=== PATIENT | female | born 1990 | race Caucasian/White ===

== ENCOUNTER 2016-09-09 07:47 | Emergency (ER) | payer OTHER | END 2016-09-09 09:09 | disposition home or self-care (01) | DX: J18.9 Pneumonia, unspecified organism (principal) ==

== ENCOUNTER 2016-10-28 12:24 | Emergency (ER) | payer OTHER ==
[2016-10-28] MEDS ORDERED: ONDANSETRON 4 MG/2 ML VIAL IVP STA ×2 (12:54→15:10)
[2016-10-28] MEDS ORDERED: HYDROmorphone 1 MG/ML SYRINGE IVP STA ×2 (12:54→14:17)
[2016-10-28] MEDS ORDERED: HYDROmorphone 1 MG/ML SYRINGE ONE ×2 (13:03→14:19)
[2016-10-28] MEDS ORDERED: ONDANSETRON 4 MG/2 ML VIAL ONE ×2 (13:03→15:10)
[2016-10-28] MEDS ORDERED: SODIUM CHLORIDE 0.9% 1,000 ML IV ONE (13:24)
[2016-10-28] MEDS ORDERED: IOPAMIDOL-300 100 ML VIAL IVP ONE (15:30)
== END 2016-10-28 16:28 | disposition home or self-care (01) ==
DX: K52.9 Noninfective gastroenteritis and colitis, unspecified (principal)
CPT/HCPCS: 36415; 74177; 80053; 81001; 81025; 83690; 85025; 96361; 96374; 96375; 96376; 99283; 99284; J1170; Q9967

== ENCOUNTER 2016-11-11 21:24 | Emergency (ER) | payer OTHER ==
[2016-11-11] MEDS ORDERED: HYDROcod/ACETAM 5/325 MG TABLET ONE (22:16)
[2016-11-11] MEDS ORDERED: KETOROLAC 60 MG/2 ML VIAL ONE (22:17)
[2016-11-12] MEDS ORDERED: DEXAMETHASONE 10 MG/ML VIAL PO STA (01:01)
[2016-11-12] MEDS ORDERED: HYDROcod/ACET 5/325 Prepack 6 PO ONE ×2 (01:01→01:04)
[2016-11-12] MEDS ORDERED: CEPHALEXIN 250 MG CAPSULE PO STA (01:01)
[2016-11-12] MEDS ORDERED: metroNIDAZOLE 250 MG TABLET PO STA (01:01)
[2016-11-12] MEDS ORDERED: CEPHALEXIN 250 MG CAPSULE PO ONE (01:04)
[2016-11-12] MEDS ORDERED: metroNIDAZOLE 250 MG TABLET PO ONE (01:04)
[2016-11-12] MEDS ORDERED: CHERRY SYRUP 10 ML UDC PO ONE (01:04)
[2016-11-12] MEDS ORDERED: DEXAMETHASONE 10 MG/ML VIAL ONE (01:05)
== END 2016-11-12 01:16 | disposition home or self-care (01) ==
DX: K52.9 Noninfective gastroenteritis and colitis, unspecified (principal); R10.12 Left upper quadrant pain
CPT/HCPCS: 36415; 74176; 80053; 81001; 81025; 83690; 85025; 99283; 99284; A9270

== ENCOUNTER 2016-12-12 17:56 | Emergency (ER) | payer OTHER ==
[2016-12-12] MEDS ORDERED: SODIUM CHLORIDE 0.9% 1,000 ML IV ONE ×2 (18:41→18:53)
[2016-12-12] MEDS ORDERED: MAG HYDROX/AL HYDROX/SIMETH 30 ML UDC PO STA (18:41)
[2016-12-12] MEDS ORDERED: METOCLOPRAMIDE 10 MG/2 ML VIAL IVP STA (18:41)
[2016-12-12] MEDS ORDERED: diphenhydrAMINE INJ 50 MG/ML VIAL IVP STA (18:41)
[2016-12-12] MEDS ORDERED: LIDOCAINE VISCOUS 2% 15 ML UDC MM STA (18:41)
[2016-12-12] MEDS ORDERED: diphenhydrAMINE INJ 50 MG/ML VIAL ONE (18:52)
[2016-12-12] MEDS ORDERED: MAG HYDROX/AL HYDROX/SIMETH 30 ML UDC ONE (18:52)
[2016-12-12] MEDS ORDERED: LIDOCAINE VISCOUS 2% 15 ML UDC MM ONE (18:52)
[2016-12-12] MEDS ORDERED: METOCLOPRAMIDE 10 MG/2 ML VIAL IVP ONE (18:53)
== END 2016-12-12 21:32 | disposition home or self-care (01) ==
DX: K20.9 Esophagitis, unspecified (principal); G43.109 Migraine with aura, not intractable, without status migrainosus; R03.0 Elevated blood-pressure reading, without diagnosis of hypertension
CPT/HCPCS: 71020; 80053; 81001; 81025; 83690; 85025; 85379; 93005; 93010; 96374; 96375; 99283; 99284; A9270

== ENCOUNTER 2016-12-16 13:03 | Day surgery (SDC) | payer OTHER ==
[2016-12-16] MEDS ORDERED: LACTATED RINGERS 1,000 ML IV ONE (13:42)
[2016-12-16] MEDS ORDERED: MIDAZOLAM 2 MG/2 ML VIAL IVP ONE (15:20)
[2016-12-16] MEDS ORDERED: fentaNYL 100 MCG/2 ML VIAL IVP ONE (15:20)
== END 2016-12-16 13:04 | disposition home or self-care (01) ==
PROC: 0DB68ZX Excision of Stomach, Via Natural or Artificial Opening Endoscopic, Diagnostic (ICD-10-PCS; principal; 2016-12-16 14:00)
PROC: 0DJD8ZZ Inspection of Lower Intestinal Tract, Via Natural or Artificial Opening Endoscopic (ICD-10-PCS; 2016-12-16 14:00)
DX: K21.9 Gastro-esophageal reflux disease without esophagitis (principal); R93.3 Abnormal findings on diagnostic imaging of other parts of digestive tract; K20.9 Esophagitis, unspecified; Z88.0 Allergy status to penicillin; Z88.2 Allergy status to sulfonamides
CPT/HCPCS: 43239; 45378; J7120

== ENCOUNTER 2017-10-25 08:36 | Emergency (ER) | payer OTHER ==
[2017-10-25] MEDS ORDERED: guaiFENesin/DEXTROMETHORPHAN 10 ML UDC PO STA ×2 (08:56→09:22)
[2017-10-25] MEDS ORDERED: BENZONATATE 100 MG CAPSULE PO STA ×2 (08:56→09:22)
--- NOTE | 2017-10-25 08:59 | ED Physician Documentation ---
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: Endometrial ablation HEENT: Tonsil/Adenoidectomy - Present Medications Home Medications: Ambulatory Orders Medication Instructions Recorded Confirmed "Migraine Medicine" 1 tab PO DAILY PRN 09/09/16 12/12/16 Sucralfate [Carafate] 1 gm PO ACHS #300 ml 06/23/17 Benzonatate [Tessalon] 100 mg PO TID PRN #20 capsule 10/25/17 guaiFENesin/DEXTROMETHORPHAN 10 ml PO Q6H PRN #120 ml 10/25/17 [Robitussin Dm] - Allergies Allergies/Adverse Reactions: Allergies Allergy/AdvReac Type Severity Reaction Status Date / Time naproxen [From Naprosyn] Allergy Hives Verified 06/23/17 05:47 Penicillins Allergy Hives Verified 06/23/17 05:47 Sulfa (Sulfonamide Allergy Hives Verified 06/23/17 05:47 Antibiotics) - Social History Does the pt smoke?: No Smoking Status: Never smoker Does the pt drink ETOH?: Yes Does the pt have substance abuse?: No - Immunizations Immunizations are current?: No - POLST Patient has POLST: No PD ED PE NORMAL - Vitals Vital signs reviewed: Yes - Neck Neck: Supple, no meningeal sign - Cardiac Cardiac: RRR - Respiratory Respiratory: No respiratory distress, Clear bilaterally - Abdomen Abdomen: Soft, Non tender - Derm Derm: Normal color - Extremities Extremities: No edema, No calf tenderness / cord - Neuro Neuro: Alert and oriented X 3 Results - Vitals Vitals: Vital Signs - 24 hr 10/25/17 10/25/17 10/25/17 08:45 11:21 11:39 Temperature 36.6 C 37.3 C Heart Rate 86 73 70 Respiratory 16 16 16 Rate Blood Pressure 123/67 105/67 117/76 O2 Saturation 99 98 100 Oxygen O2 Source Room air - Labs Labs: Laboratory Tests 10/25/17 10/25/17 10/25/17 09:23 09:23 09:23 WBC 7.7 RBC 4.43 Hgb 13.3 Hct 37.9 MCV 85.6 MCH 29.9 MCHC 35.0 RDW 13.3 Plt Count 288 MPV 7.5 L Neut # 4.6 Lymph # 2.2 Walker # 0.6 Eos # 0.2 Baso # 0.1 Absolute Nucleated RBC 0.00 Nucleated RBC % 0.0 D-Dimer < 200.0 L Sodium 138 Potassium 3.6 Chloride 105 Carbon Dioxide 24 Anion Gap 9.0 BUN 10 Creatinine 0.7 Estimated GFR (MDRD) 99 Glucose 93 Calcium 8.8 Serum HCG, Qual 10/25/17 09:30 WBC RBC Hgb Hct MCV MCH MCHC RDW Plt Count MPV Neut # Lymph # Walker # Eos # Baso # Absolute Nucleated RBC Nucleated RBC % D-Dimer Sodium Potassium Chloride Carbon Dioxide Anion Gap BUN Creatinine Estimated GFR (MDRD) Glucose Calcium Serum HCG, Qual NEGATIVE - Rads (name of study) CXR Radiology: See rad report (no acute) CTPA Radiology: See rad report (no PE, no infection not vis on CXR, approx 4 small nodules rec 12 m fup) Departure - Departure Disposition: 01 Home, Self Care Clinical Impression: Hemoptysis Condition: Good Instructions: ED Hemoptysis Follow-Up: Rafa Damian DO [Primary Care Provider] - Prescriptions: Benzonatate [Tessalon] 100 mg PO TID PRN #20 capsule PRN Reason: to ease cough guaiFENesin/DEXTROMETHORPHAN [Robitussin Dm] 10 ml PO Q6H PRN #120 ml PRN Reason: Cough Comments: Your blood work, xray and CT scan were all reassuring The only abnormality was 4 small incidentally noted nodules in your lungs which would not cause you to cough blood - these nodules do not look concerning but it would be prudent to have your PMD order a repat chest xray or CT scan in 1 year It does not seem you have a blood clot in your lung, pneumonia, TB, or cancer. I am not sure what caused the bleeding though If the sympotms persist, the next step would be to see a waste water operator to get a scope of your lungs called bronchoscopy - this is not done at [facility] and you would need a referral from your PMD. But for now given, the reassuring work up in the ER I think it is safe for you to go home with cough medications Follow up with your PMD if the symptoms persist If your start bleeding heavily (more than 2-3 tablespoons of solid blood) then come back to the ER Forms: Activity restrictions
[2017-10-25 09:31] LABS: BASOPHILS # (AUTO) 0.1 10^3/uL (0.0-0.1); EOSINOPHILS # (AUTO) 0.2 10^3/uL (0.0-0.7); HGB - HEMOGLOBIN 13.3 g/dL (12.0-16.0); LYMPHOCYTES # (AUTO) 2.2 10^3/uL (1.5-3.5); LYMPHOCYTES % (AUTO) 29.2 %; MEAN CORPUSCULAR HEMOGLOBIN 29.9 pg (27.0-31.0); MEAN CORPUSCULAR VOLUME 85.6 fL (81.0-99.0); MEAN PLATELET VOLUME 7.5 fL (7.9-10.8); MONOCYTES # (AUTO) 0.6 10^3/uL (0.0-1.0); MONOCYTES % (AUTO) 7.3 %; NEUTROPHILS # (AUTO) 4.6 10^3/uL (1.5-6.6); NEUTROPHILS % (AUTO) 60.5 %; PLT - PLATELET COUNT 288 10^3/uL (130-450); RED BLOOD COUNT 4.43 10^6/uL (4.20-5.40); RED CELL DISTRIBUTION WIDTH 13.3 % (12.0-15.0); WHITE BLOOD COUNT 7.7 x10^3/uL (4.8-10.8)
[2017-10-25 09:47] LABS: CALCIUM 8.8 mg/dL (8.5-10.3); CREATININE 0.7 mg/dL (0.4-1.0)
--- NOTE | 2017-10-25 10:23 | XRAY Report ---
EXAM: CHEST RADIOGRAPHY EXAM DATE: 10/25/2017 09:31 AM. CLINICAL HISTORY: Hemoptysis. COMPARISON: 12/12/2016. TECHNIQUE: 2 views. FINDINGS: Lungs/Pleura: Improved bibasilar pulmonary aeration. Stable equivocal mild bibasilar bronchial wall t hickening. No consolidation, vascular congestion, pleural effusion, or pneumothorax. Mediastinum: Heart and mediastinal contours are unremarkable. Bones: Unremarkable. Other: Right upper quadrant clips. IMPRESSION: 1. No consolidation or heart failure. 2. Improved lung expansion. Similar equivocal mild basilar bronchial wall thickening. [facility] Referring Provider Line: [phone] SITE ID: [id number]
--- NOTE | 2017-10-25 10:23 | XRAY Preliminary Report ---
Exam: XR CHEST 2 VIEW X-RAY IMPRESSION: 1. No consolidation or heart failure. 2. Improved lung expansion. Similar equivocal mild basilar bronchial wall thickening. [facility] SITE ID: [id number]
[2017-10-25 10:34] LABS: HCG,QUALITATIVE BLOOD NEGATIVE
[2017-10-25] MEDS ORDERED: IOPAMIDOL-300 100 ML VIAL ONE (10:55)
[2017-10-25 11:40] VITALS: BP 117/76
--- NOTE | 2017-10-25 12:05 | CT Preliminary Report ---
Exam: CT CHEST ANGIO (PE) IMPRESSION: 1. No pulmonary emboli. 2. Multiple small nodules right lung largest 4 mm. If no risk factors for lung cancer no follow-up ne eded. If risk factors for lung cancer optional follow-up 12 months [facility] SITE ID: [id number]
--- NOTE | 2017-10-25 12:05 | CT Report ---
EXAM: CT ANGIOGRAM CHEST EXAM DATE: 10/25/2017 11:09 AM. CLINICAL HISTORY: Hemoptysis. COMPARISON: None. TECHNIQUE: Routine helical imaging was performed through the chest in the pulmonary arterial phase. I V Contrast: Amt/type. Reconstructions: Coronal 3-D MIP reconstructions.Sagittal and coronal. In accordance with CT protocol optimization, one or more of the following dose reduction techniques w ere utilized for this exam: automated exposure control, adjustment of mA and/or KV based on patient s ize, or use of iterative reconstructive technique. FINDINGS: Pulmonary Arteries: Diagnostic quality: Adequate through the segmental arteries. No evidence for acute or chronic pulmona ry emboli. RV/LV is within normal limits. There is no interventricular septal bowing. There is no reflux of cont rast material in the IVC. Lungs/Pleura: 4 mm nodule right lower lobe posterior segment series 5 image 97. 2 mm possible calcifi ed nodule right lower lobe image 100. 2 mm nodule right upper lobe series 5 image 32. 2 mm nodule rig ht upper lobe series 5 image 62 medially No effusions or pneumothorax. Mediastinum: Normal. No cardiac enlargement or adenopathy. Thoracic Aorta: Unremarkable. Upper Abdomen: Unremarkable. Other: None. IMPRESSION: 1. No pulmonary emboli. 2. Multiple small nodules right lung largest 4 mm. If no risk factors for lung cancer no follow-up ne eded. If risk factors for lung cancer optional follow-up 12 months [facility] Referring Provider Line: [phone] SITE ID: [id number]
== END 2017-10-25 12:41 | disposition home or self-care (01) ==
LOC: ED 08:36
DX: R04.2 Hemoptysis (principal); R91.8 Other nonspecific abnormal finding of lung field
CPT/HCPCS: 36415; 71046; 71275; 80048; 84703; 85025; 85379; 99283; A9270; Q9967

== ENCOUNTER 2017-11-08 17:18 | Emergency (ER) | payer OTHER ==
[2017-11-08 18:02] LABS: BASOPHILS # (AUTO) 0.1 10^3/uL (0.0-0.1); BASOPHILS % (AUTO) 0.9 %; EOSINOPHILS # (AUTO) 0.2 10^3/uL (0.0-0.7); EOSINOPHILS % (AUTO) 2.6 %; HGB - HEMOGLOBIN 13.2 g/dL (12.0-16.0); LYMPHOCYTES # (AUTO) 3.1 10^3/uL (1.5-3.5); LYMPHOCYTES % (AUTO) 32.5 %; MEAN CORPUSCULAR HEMOGLOBIN 29.3 pg (27.0-31.0); MEAN CORPUSCULAR HGB CONC 34.1 g/dL (32.0-36.0); MEAN CORPUSCULAR VOLUME 85.8 fL (81.0-99.0); MEAN PLATELET VOLUME 7.4 fL (7.9-10.8); MONOCYTES # (AUTO) 0.8 10^3/uL (0.0-1.0); MONOCYTES % (AUTO) 8.7 %; NEUTROPHILS # (AUTO) 5.2 10^3/uL (1.5-6.6); NEUTROPHILS % (AUTO) 55.3 %; PLT - PLATELET COUNT 376 10^3/uL (130-450); RED BLOOD COUNT 4.51 10^6/uL (4.20-5.40); RED CELL DISTRIBUTION WIDTH 13.2 % (12.0-15.0); WHITE BLOOD COUNT 9.4 x10^3/uL (4.8-10.8)
[2017-11-08 18:16] LABS: ALBUMIN 4.6 g/dL (3.2-5.5); ALBUMIN/GLOBULIN RATIO 1.5 (1.0-2.2); BILIRUBIN,TOTAL 0.6 mg/dL (0.2-1.0); CREATININE 0.6 mg/dL (0.4-1.0); TOTAL PROTEIN 7.6 g/dL (6.7-8.2)
[2017-11-08 18:22] LABS: BILIRUBIN,URINE NEGATIVE (NEGATIVE); GLUCOSE, URINE (UA) NEGATIVE (NEGATIVE); KETONES,URINE (UA) NEGATIVE (NEGATIVE); LEUKOCYTE ESTERASE, URINE NEGATIVE (NEGATIVE); NITRITE,URINE NEGATIVE (NEGATIVE); OCCULT BLOOD,URINE NEGATIVE (NEGATIVE); PROTEIN,URINE NEGATIVE (NEGATIVE); UROBILINOGEN,URINE 0.2 (NORMAL) E.U./dL (NORMAL)
[2017-11-08 18:28] LABS: CLARITY,URINE CLEAR (CLEAR); HCG UR QUAL NEGATIVE
--- NOTE | 2017-11-08 19:52 | XRAY Preliminary Report ---
Exam: XR CHEST 2 VIEW X-RAY IMPRESSION: No acute cardiopulmonary disease seen. [facility] SITE ID: [id number]
--- NOTE | 2017-11-08 19:53 | XRAY Report ---
EXAM: CHEST RADIOGRAPHY EXAM DATE: 11/08/2017 07:26 PM. CLINICAL HISTORY: Cough, dyspnea. COMPARISON: Chest 10/25/2017. TECHNIQUE: 2 views. FINDINGS: Lungs/Pleura: No focal opacities evident. No pleural effusion. No pneumothorax. Normal volumes. Mediastinum: Heart and mediastinal contours are unremarkable. IMPRESSION: No acute cardiopulmonary disease seen. [facility] Referring Provider Line: [phone] SITE ID: [id number]
[2017-11-08] MEDS ORDERED: KETOROLAC 60 MG/2 ML VIAL IM STA (19:58)
[2017-11-08] MEDS ORDERED: LIDOCAINE PATCH 5% TOP STA (19:58)
--- NOTE | 2017-11-08 20:05 | ED Physician Documentation ---
PD HPI ABD PAIN - Stated complaint Stated Complaint: SOA/UPPER RT SIDE PX - Chief complaint Chief Complaint: Abd Pain - History obtained from History obtained from: Patient - History of Present Illness Timing - onset: Yesterday Timing - details: Gradual onset, Still present Quality: Aching, Sharp Location: RUQ Worsened by: Moving, Position, Palpation Associated symptoms: Diarrhea. No: Fever, Nausea, Vomiting, Constipation Similar symptoms before: Has not had sx before Recently seen: Emergency Dept - Additional information Additional information: Patient is a 27 year old female presenting to the emergency department for abdominal pain. Patient states that for the last couple of days she has had right upper quadrant pain. Patient states that it is worse with movement or palpation and when she lies down flat. Patient states that she was coughing last week a lot and was diagnosed with pulmonary nodules. patient has had her gallbladder removed. patient states that she had one loose stool but denies nausea, vomiting or fevers. Review of Systems Constitutional: denies: Fever, Chills Eyes: reports: Reviewed and negative Ears: reports: Reviewed and negative Nose: reports: Reviewed and negative Throat: reports: Reviewed and negative Cardiac: denies: Chest pain / pressure, Palpitations Respiratory: denies: Dyspnea, Cough, Wheezing GI: reports: Abdominal Pain, Constipation. 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 HEENT: Tonsil/Adenoidectomy - Present Medications Home Medications: Ambulatory Orders Medication Instructions Recorded Confirmed Lidocaine Patch 5% [Lidoderm Patch] 1 each TOP DAILY #14 patch 11/08/17 - Allergies Allergies/Adverse Reactions: Allergies Allergy/AdvReac Type Severity Reaction Status Date / Time naproxen [From Naprosyn] Allergy Hives Verified 11/08/17 17:43 Penicillins Allergy Hives Verified 11/08/17 17:43 Sulfa (Sulfonamide Allergy Hives Verified 11/08/17 17:43 Antibiotics) - Social History Does the pt smoke?: No Smoking Status: Never smoker Does the pt drink ETOH?: Yes Does the pt have substance abuse?: No - Immunizations Immunizations are current?: No - POLST Patient has POLST: No PD ED PE NORMAL - Vitals Vital signs reviewed: Yes - General General: Alert and oriented X 3, No acute distress - HEENT HEENT: Atraumatic, Moist mucous membranes - Neck Neck: Supple, no meningeal sign - Cardiac Cardiac: RRR, No murmur - Respiratory Respiratory: No respiratory distress - Abdomen Abdomen: Soft, Non tender, Non distended - Back Back: No CVA TTP - Derm Derm: Normal color, No rash - Extremities Extremities: No deformity - Neuro Neuro: Alert and oriented X 3, No motor deficit, No sensory deficit, Normal speech Eye Opening: Spontaneous Motor: Obeys Commands Verbal: Oriented GCS Score: 15 - Psych Psych: Normal mood PD ED PE EXPANDED - General General: Alert, No acute distress - Abdomen Abdomen: Tender to palpation (point tenderness right upper quadrant but over the ribs, less the abdomen) Results - Vitals Vitals: Vital Signs - 24 hr 11/08/17 17:38 Temperature 36.8 C Heart Rate 86 Respiratory 18 Rate Blood Pressure 133/92 H O2 Saturation 100 Oxygen O2 Source Room air - Labs Labs: Laboratory Tests 11/08/17 11/08/17 11/08/17 17:57 17:57 17:58 WBC 9.4 RBC 4.51 Hgb 13.2 Hct 38.7 MCV 85.8 MCH 29.3 MCHC 34.1 RDW 13.2 Plt Count 376 MPV 7.4 L Neut # 5.2 Lymph # 3.1 [place] # 0.8 Eos # 0.2 Baso # 0.1 Absolute Nucleated RBC 0.00 Nucleated RBC % 0.0 Sodium 136 Potassium 3.7 Chloride 105 Carbon Dioxide 24 Anion Gap 7.0 BUN 7 Creatinine 0.6 Estimated GFR (MDRD) 118 Glucose 110 H Calcium 9.0 Total Bilirubin 0.6 AST 24 ALT 26 Alkaline Phosphatase 88 Total Protein 7.6 Albumin 4.6 Globulin 3.0 Albumin/Globulin Ratio 1.5 Lipase 17 L Urine Color YELLOW Urine Clarity CLEAR Urine pH 6.0 Ur Specific [place] 1.020 Urine Protein NEGATIVE Urine Glucose (UA) NEGATIVE Urine Ketones NEGATIVE Urine Occult Blood NEGATIVE Urine Nitrite NEGATIVE Urine Bilirubin NEGATIVE Urine Urobilinogen 0.2 (NORMAL) Ur Leukocyte Esterase NEGATIVE Ur Microscopic Review NOT INDICATED Urine Culture Comments NOT INDICATED Urine HCG, Qual NEGATIVE - Rads (name of study) chest x-ray Radiology: Final report received (normal) PD MEDICAL DECISION MAKING - ED course Complexity details: reviewed old records, reviewed results, re-evaluated patient , d/w patient ED course: Patient was seen and examined at bedside. patient was well appearing and in no distress. Patient's diagnostics were within normal limits. Patient's physical revealed the pain likely to be a muscle strain. Patient was able to tolerate PO without any difficulty. patient required no further work up and was stable for discharge with outpatient follow up. Departure - Departure Disposition: Home, Self Care Clinical Impression: Strain of abdominal muscle Condition: Good Instructions: ED Strain Abdominal Muscle Follow-Up: Rafa Damian DO [Primary Care Provider] - As Needed Prescriptions: Lidocaine Patch 5% [Lidoderm Patch] 1 each TOP DAILY #14 patch Comments: Your diagnostics today were within normal limits. there is no sign of infection , or intra-abdominal abnormality. Your symptoms are likely secondary to a muscle strain. You can take motrin or tylenol as needed fro pain as well as the lidoderm patch. You should follow up with your doctor if your symptoms persist. You may return to the emergency department at any time for new, worsening or uncontrollable symptoms. Forms: Activity restrictions
[2017-11-08 20:22] VITALS: BP 146/92
== END 2017-11-08 20:22 | disposition home or self-care (01) ==
LOC: ED 17:18
DX: S39.011A Strain of muscle, fascia and tendon of abdomen, initial encounter (principal); X58.XXXA Exposure to other specified factors, initial encounter
CPT/HCPCS: 36415; 71046; 80053; 81003; 81025; 83690; 85025; 96372; 99283; A9270; 81001; 87086

== ENCOUNTER 2018-05-30 08:10 | Emergency (ER) | payer OTHER ==
[2018-05-30] MEDS ORDERED: ALBUTEROL NEB 2.5 MG/3 ML INH STA (08:35)
[2018-05-30] MEDS ORDERED: BENZONATATE 100 MG CAPSULE PO STA (08:35)
--- NOTE | 2018-05-30 08:38 | ED Physician Documentation ---
PD HPI URI - Stated complaint Stated Complaint: COUGH - Chief complaint Chief Complaint: Resp - History obtained from History obtained from: Patient - History of Present Illness Timing - onset: How many days ago (2) Timing duration: Days (2) Timing details: Gradual onset Pain level max: 0 Pain level now: 0 Associated symptoms: Nasal congestion, Rhinorrhea, Dry cough, Dyspnea (wheezing). No: Fever, Chills Contributing factors: Sick contact (states has used inhalers in the past) Improves by: Rest Worsened by: Activity, Breathing Recently seen: Not recently seen Review of Systems Constitutional: denies: Fever, Chills Throat: denies: Sore throat Cardiac: denies: Chest pain / pressure Respiratory: reports: Dyspnea, Cough, Wheezing GI: denies: Nausea, Vomiting, Diarrhea : denies: Now EGA Skin: denies: Rash Musculoskeletal: denies: Neck pain, Back pain Neurologic: denies: Headache PD PAST MEDICAL HISTORY - Past Medical History Past Medical History: Yes Cardiovascular: None Respiratory: None Neuro: None Endocrine/Autoimmune: None GI: None 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 : None HEENT: None Psych: Anxiety, Panic attacks, Post traumatic stress disorder Musculoskeletal: None Derm: None - Past Surgical History Past Surgical History: Yes 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 HEENT: Tonsil/Adenoidectomy - Present Medications Home Medications: Ambulatory Orders Medication Instructions Recorded Confirmed Lidocaine Patch 5% [Lidoderm Patch] 1 each TOP DAILY #14 patch 11/08/17 Albuterol Sulf [Ventolin Hfa 1 - 2 puffs INH Q4HR PRN #1 inhaler 05/30/18 Inhaler] Benzonatate [Tessalon Perle] 100 - 200 mg PO TID PRN #30 capsule 05/30/18 - Allergies Allergies/Adverse Reactions: Allergies Allergy/AdvReac Type Severity Reaction Status Date / Time naproxen [From Naprosyn] Allergy Hives Verified 05/30/18 08:16 Penicillins Allergy Hives Verified 05/30/18 08:16 Sulfa (Sulfonamide Allergy Hives Verified 05/30/18 08:16 Antibiotics) - Social History Does the pt smoke?: No Smoking Status: Never smoker Does the pt drink ETOH?: Yes ETOH Use: Wine Does the pt have substance abuse?: No - Immunizations Immunizations are current?: Yes - POLST Patient has POLST: No PD ED PE NORMAL - Vitals Vital signs reviewed: Yes - General General: Alert and oriented X 3, No acute distress - HEENT HEENT: Ears normal, Moist mucous membranes, Pharynx benign - Neck Neck: Supple, no meningeal sign - Cardiac Cardiac: RRR - Respiratory Respiratory: No respiratory distress, Other (Mild diminished breath sounds bilaterally) - Abdomen Abdomen: Soft, Non tender, Non distended - Derm Derm: Warm and dry, No rash - Extremities Extremities: No edema, No calf tenderness / cord - Neuro Neuro: Alert and oriented X 3 Results - Vitals Vitals: Vital Signs - 24 hr 05/30/18 08:13 Temperature 36.2 C L Heart Rate 87 Respiratory 18 Rate Blood Pressure 131/75 H O2 Saturation 98 Oxygen O2 Source Room air - Rads (name of study) Chest x-ray Radiology: Prelim report reviewed, EMP read contemporaneously, See rad report (No acute abnormality) PD MEDICAL DECISION MAKING - ED course Complexity details: reviewed results, re-evaluated patient, considered differential, d/w patient ED course: Patient is a 27-year-old female who presents to the emergency department with what appears to be a viral upper respiratory infection. No acute findings on chest x-ray. Feels better after nebulizer treatment. Will prescribe antitussives and inhalers for home. We will have her follow-up with her doctor for further evaluation and care. Patient counseled regarding signs and symptoms for which I believe and urgent re-evaluation would be necessary. Patient with good understanding of and agreement to plan and is comfortable going home at this time This document was made in part using voice recognition software. While efforts are made to proofread this document, sound alike and grammatical errors may occur. Departure - Departure Disposition: 01 Home, Self Care Clinical Impression: Viral URI with cough Condition: Good Instructions: ED URI Viral W Wheezing Follow-Up: Rafa Damian DO [Primary Care Provider] - As Needed Prescriptions: Albuterol Sulf [Ventolin Hfa Inhaler] 1 - 2 puffs INH Q4HR PRN #1 inhaler PRN Reason: Shortness Of Air/Wheezing Benzonatate [Tessalon Perle] 100 - 200 mg PO TID PRN #30 capsule PRN Reason: Cough Comments: Return if you worsen. This cough may last for several weeks. There is no evidence of pneumonia on your chest x-ray today.
--- NOTE | 2018-05-30 08:39 | XRAY Report ---
Reason: COUGH Procedure Date: 05/30/2018 Accession Number: [id number] / [id number] Procedure: XR - Chest 2 View X-Ray CPT Code: 36923 FULL RESULT: EXAM: CHEST RADIOGRAPHY EXAM DATE: 05/30/2018 08:28 AM. CLINICAL HISTORY: COUGH. Cough for 2 days with difficulty breathing now. COMPARISON: CHEST 2 VIEW 11/08/2017 7:15 PM. TECHNIQUE: 2 views. FINDINGS: Lungs/Pleura: No focal opacities evident. No pleural effusion. No pneumothorax. Normal volumes. Mediastinum: Heart and mediastinal contours are unremarkable. Other: None. IMPRESSION: Normal 2-view chest radiography. [facility]
[2018-05-30 09:16] VITALS: BP 128/74
== END 2018-05-30 09:15 | disposition home or self-care (01) ==
LOC: ED 08:10
DX: J06.9 Acute upper respiratory infection, unspecified (principal)
CPT/HCPCS: 71046; 94640; 99283; A9270

== ENCOUNTER 2018-06-02 08:11 | Emergency (ER) | payer OTHER ==
[2018-06-02 08:16] VITALS: BP 141/75
[2018-06-02] MEDS ORDERED: AZITHROMYCIN 250 MG TABLET PO STA (08:26)
[2018-06-02] MEDS ORDERED: predniSONE 20 MG TABLET PO STA (08:26)
--- NOTE | 2018-06-02 08:29 | ED Physician Documentation ---
History of Present Illness - Stated complaint Stated Complaint: COUGH/UNABLE TO SLEEP - Chief complaint Chief Complaint: Resp - Additonal information Additional information: hx from pt 27 y/o f denies preg no travel no sick contacts cough getting worse X 2 weeks productive post tussive vomiting no NVD no leg swelling seen 3 days ago neg CXR rx albuterol and tessalon worse Review of Systems Constitutional: denies: Fever Respiratory: reports: Cough GI: denies: Vomiting, Diarrhea : denies: Now EGA Musculoskeletal: denies: Extremity swelling Immunocompromised: denies: Immunocompromised PD PAST MEDICAL HISTORY - Past Medical History Cardiovascular: None Respiratory: None Neuro: None Endocrine/Autoimmune: None GI: None 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 HEENT: None Psych: Anxiety, Panic attacks, Post traumatic stress disorder Musculoskeletal: None Derm: None - Past Surgical History Past Surgical History: Yes 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 HEENT: Tonsil/Adenoidectomy - Present Medications Home Medications: Ambulatory Orders Medication Instructions Recorded Confirmed Albuterol Sulf [Ventolin Hfa 1 - 2 puffs INH Q4HR PRN #1 inhaler 05/30/18 Inhaler] Benzonatate [Tessalon Perle] 100 - 200 mg PO TID PRN #30 capsule 05/30/18 Azithromycin [Zithromax] 500 mg PO DAILY #4 tablet 06/02/18 guaiFENesin/CODEINE [Robitussin AC] 5 - 10 ml PO Q6H PRN #120 udc 06/02/18 predniSONE [Deltasone] 60 mg PO DAILY 4 Days #12 tablet 06/02/18 - Allergies Allergies/Adverse Reactions: Allergies Allergy/AdvReac Type Severity Reaction Status Date / Time naproxen [From Naprosyn] Allergy Hives Verified 06/02/18 08:16 Penicillins Allergy Hives Verified 06/02/18 08:16 Sulfa (Sulfonamide Allergy Hives Verified 06/02/18 08:16 Antibiotics) - Social History Does the pt smoke?: No Smoking Status: Never smoker Does the pt drink ETOH?: Yes Does the pt have substance abuse?: No - Immunizations Immunizations are current?: Yes - POLST Patient has POLST: No PD ED PE NORMAL - Vitals Vital signs reviewed: Yes - Cardiac Cardiac: RRR - Respiratory Respiratory: Other (focal ronchi LLL) - Abdomen Abdomen: Soft, Non tender - Extremities Extremities: No edema, No calf tenderness / cord Results - Vitals Vitals: Vital Signs - 24 hr 06/02/18 08:14 Temperature 36.0 C L Heart Rate 78 Respiratory 16 Rate Blood Pressure 141/75 H O2 Saturation 99 Oxygen O2 Source Room air PD MEDICAL DECISION MAKING - ED course ED course: no fever myalgia or GI sx so doubt influenza - sick for 2 weeks so tamiflu would not be indicated anyway Departure - Departure Disposition: 01 Home, Self Care Clinical Impression: Pneumonia Qualifiers: Pneumonia type: due to unspecified organism Laterality: left Lung location: lower lobe of lung Qualified Code(s): J18.1 - Lobar pneumonia, unspecified organism Condition: Good Instructions: ED Pneumonia Adult Follow-Up: Rafa Damian DO [Primary Care Provider] - Prescriptions: Azithromycin [Zithromax] 500 mg PO DAILY #4 tablet guaiFENesin/CODEINE [Robitussin AC] 5 - 10 ml PO Q6H PRN #120 udc PRN Reason: Cough predniSONE [Deltasone] 60 mg PO DAILY 4 Days #12 tablet Comments: Your recent xray was fine but you really sound like you have a left lower lung pneumonia on exam So I am treating you with antibiotics. The prednisone is a steroid and it works by decreasing airway inflammation. The codeine will ease the cough - but might make you drowsy or nauseated - this medication is only for symptom management so if you are drowsy or nauseated you don't have to take it. Continue the inhaler 2 puffs every 6 hr as needed for the cough Rest and drink plenty of fluids I wrote a note for work. Follow up with your PMD for a recheck Forms: Activity restrictions
== END 2018-06-02 08:40 | disposition home or self-care (01) ==
LOC: ED 08:11
DX: J18.1 Lobar pneumonia, unspecified organism (principal)
CPT/HCPCS: 99283; 99284; A9270; J7512

== ENCOUNTER 2018-09-24 07:56 | Emergency (ER) | payer OTHER ==
--- NOTE | 2018-09-24 08:06 | ED Physician Documentation ---
PD HPI OPHTHO - Stated complaint Stated Complaint: EYE SWELLING - History obtained from History obtained from: Patient - History of Present Illness Timing - onset: Today (had some URI congestion symptoms for few days and seen yesterday in ER. then awoke this morning with right eye crusted, red and swollen.) Timing - duration: Days (1) Timing - details: Abrupt onset, Still present Location: Right Quality / character: Burning Associated symptoms: Redness, Swelling, Discharge. No: FB sensation, Photophobia, Decreased vision Contributing factors: Recent URI. No: Exposed to conjunctivitis, FB, Wears contacts Similar symptoms before: Has not had sx before Recently seen: Emergency Dept (for URI symptoms, did not have eye symptoms until today) Review of Systems Constitutional: denies: Fever Nose: reports: Congestion. 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 : None HEENT: None Psych: Anxiety, Panic attacks, Post traumatic stress disorder Musculoskeletal: None Derm: None - Past Surgical History Past Surgical History: Yes General: Cholecystectomy /CASINO ENFORCEMENT AGENT: Endometrial ablation HEENT: Tonsil/Adenoidectomy - Present Medications Home Medications: Ambulatory Orders Medication Instructions Recorded Confirmed No Known Home Medications 09/23/18 09/23/18 - Allergies Allergies/Adverse Reactions: Allergies Allergy/AdvReac Type Severity Reaction Status Date / Time naproxen [From Naprosyn] Allergy Hives Verified 09/24/18 08:12 Penicillins Allergy Hives Verified 09/24/18 08:12 Sulfa (Sulfonamide Allergy Hives Verified 09/24/18 08:12 Antibiotics) - Social History Does the pt smoke?: No Smoking Status: Never smoker Does the pt drink ETOH?: Yes Does the pt have substance abuse?: No - Immunizations Immunizations are current?: Yes - POLST Patient has POLST: No PD ED PE NORMAL - Vitals Vital signs reviewed: Yes - General General: Alert and oriented X 3, No acute distress, Well developed/nourished - HEENT HEENT: PERRL, EOMI, Ears normal, Moist mucous membranes, Pharynx benign - Neck Neck: Supple, no meningeal sign, No adenopathy PD ED PE EXPANDED - Eyes Eyes: Eyelid swelling, Injected conj/sclera, Exudate. No: Conj/sclera FB Results - Vitals Vitals: Vital Signs - 24 hr 09/24/18 08:01 Temperature 36.7 C Heart Rate 96 Respiratory 18 Rate Blood Pressure 129/80 O2 Saturation 99 Oxygen O2 Source Room air PD MEDICAL DECISION MAKING - ED course Complexity details: reviewed old records, considered differential, d/w patient Departure - Departure Disposition: Home, Self Care Clinical Impression: Conjunctivitis, acute Qualifiers: Acute conjunctivitis type: bacterial Laterality: right Qualified Code(s): H10.31 - Unspecified acute conjunctivitis, right eye Condition: Stable Record reviewed to determine appropriate education?: Yes Instructions: ED Conjunctivitis Nonspecific Comments: Use the antibiotic eyedrops every 2-3 hours while awake for the next 2-3 days until your eyes fully cleared. This is possibly viral and connected with the sore throat you had. However given the focus of redness and discharge on the one eye, makes it seem more likely bacterial. You could also use [id number] cleansing drops such as saline drops to see you then cleanse. An antihistamine eyedrop may reduce the loop of the swelling as well; and [id number], common one is ketotifen. Discharge Date/Time: 09/24/18 08:35
[2018-09-24 08:12] VITALS: BP 129/80
[2018-09-24] MEDS ORDERED: GENTAMICIN 0.3% OPHTH DROPS RIGHTEYE STA (08:19)
== END 2018-09-24 08:35 | disposition home or self-care (01) ==
LOC: ED 07:56
DX: H10.31 Unspecified acute conjunctivitis, right eye (principal)
CPT/HCPCS: 99282; 99283; A9270

== ENCOUNTER 2018-11-15 12:25 | Emergency (ER) | payer OTHER ==
[2018-11-15 12:39] VITALS: BP 133/69
[2018-11-15] MEDS ORDERED: DEXAMETHASONE 10 MG/ML VIAL PO STA (14:06)
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
[2018-11-15] MEDS ORDERED: CHERRY SYRUP 10 ML UDC PO ONE (14:20)
--- NOTE | 2018-11-15 15:15 | XRAY Report ---
Reason: heel pain X 1 month. Procedure Date: 11/15/2018 Accession Number: [id number] / [id number] Procedure: XR - Foot 3 View LT CPT Code: FULL RESULT: EXAM: LEFT FOOT RADIOGRAPHY. EXAM DATE: 11/15/2018 02:45 PM. CLINICAL HISTORY: Heel pain x1 month. COMPARISON: None. TECHNIQUE: 3 views. FINDINGS: Bones: Normal. No fractures or bone lesions. Joints: Normal. No subluxations. Soft Tissues: Normal. No soft tissue swelling. IMPRESSION: Normal foot radiography. RADIA
== END 2018-11-15 15:10 | disposition home or self-care (01) ==
LOC: ED 12:25
DX: J30.89 Other allergic rhinitis (principal); H66.002 Acute suppurative otitis media without spontaneous rupture of ear drum, left ear; Z77.120 Contact with and (suspected) exposure to mold (toxic)
CPT/HCPCS: 73630; 99283; A9270; 1040M

== ENCOUNTER 2018-11-17 19:22 | Emergency (ER) | payer OTHER ==
[2018-11-17] MEDS ORDERED: CETIRIZINE 10 MG TABLET PO STA (19:52)
[2018-11-17] MEDS ORDERED: PSEUDOEPHEDRINE 30 MG TABLET PO STA (19:52)
[2018-11-17] MEDS ORDERED: ALBUTEROL NEB 2.5 MG/3 ML INH STA (19:52)
[2018-11-17] MEDS ORDERED: BENZONATATE 100 MG CAPSULE PO STA (19:52)
--- NOTE | 2018-11-17 20:37 | ED Physician Documentation ---
PD HPI URI - Stated complaint Stated Complaint: SOA/MOLD EXP - Chief complaint Chief Complaint: Resp - History obtained from History obtained from: Patient - History of Present Illness Timing - onset: How many days ago (several) Timing duration: Days (several) Timing details: Gradual onset Pain level max: 0 Pain level now: 0 Associated symptoms: Nasal congestion, Rhinorrhea, Dry cough, Dyspnea (Occasional wheezing). 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 HEENT: None Psych: Anxiety, Panic attacks, Post traumatic stress disorder Musculoskeletal: None Derm: None - Past Surgical History Past Surgical History: Yes General: 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: Endometrial ablation HEENT: Tonsil/Adenoidectomy - Present Medications Home Medications: Ambulatory Orders Medication Instructions Recorded Confirmed Albuterol Sulf [Ventolin Hfa 1 - 2 puffs INH Q4HR PRN #1 inhaler 11/15/18 Inhaler] Azithromycin [Zithromax] 250 mg PO DAILY #6 tablet 11/15/18 Topiramate [Topamax] 25 mg PO PRN 11/15/18 predniSONE [Deltasone] 10 mg PO ONCE #26 tablet 11/15/18 Benzonatate [Tessalon Perle] 100 - 200 mg PO TID PRN #30 capsule 11/17/18 Cetirizine HCl/Pseudoephedrine 1 each PO BID PRN #30 tab.er.12h 11/17/18 [Zyrtec-D Tablet] - Allergies Allergies/Adverse Reactions: Allergies Allergy/AdvReac Type Severity Reaction Status Date / Time naproxen [From Naprosyn] Allergy Hives Verified 11/17/18 19:35 Penicillins Allergy Hives Verified 11/17/18 19:35 Sulfa (Sulfonamide Allergy Hives Verified 11/17/18 19:35 Antibiotics) - Social History Does the pt smoke?: No Smoking Status: Never smoker Does the pt drink ETOH?: Yes Does the pt have substance abuse?: No - Immunizations Immunizations are current?: Yes - POLST Patient has POLST: No PD ED PE NORMAL - Vitals Vital signs reviewed: Yes - General General: Alert and oriented X 3, No acute distress - HEENT HEENT: PERRL, Ears normal, Moist mucous membranes, Other (Cobblestoning in the posterior oropharynx. Postnasal drip present.) - Neck Neck: Supple, no meningeal sign, No adenopathy - Cardiac Cardiac: RRR - Respiratory Respiratory: No respiratory distress, Clear bilaterally - Abdomen Abdomen: Soft, Non tender, Non distended - Derm Derm: Warm and dry - Neuro Neuro: Alert and oriented X 3 - Psych Psych: Normal mood, Normal affect Results - Vitals Vitals: Vital Signs - 24 hr 11/17/18 11/17/18 11/17/18 19:32 20:18 20:41 Temperature 36.7 C Heart Rate 108 H 87 82 Respiratory 17 18 17 Rate Blood Pressure 135/74 H 136/74 H O2 Saturation 97 97 Oxygen O2 Source Room air PD MEDICAL DECISION MAKING - ED course Complexity details: reviewed old records, re-evaluated patient, considered differential, d/w patient ED course: 28-year-old female presents to the emergency department with a viral URI. She is well-appearing, nontoxic. Will place on cough medication and decongestants for home. She has steroids and albuterol already. No evidence of pneumonia. No fevers. No hypoxia. No respiratory distress. Patient counseled regarding signs and symptoms for which I believe and urgent re-evaluation would be necessary. Patient with good understanding of and agreement to plan and is comfortable going home at this time This document was made in part using voice recognition software. While efforts are made to proofread this document, sound alike and grammatical errors may occur. Departure - Departure Disposition: 01 Home, Self Care Clinical Impression: Viral URI with cough Condition: Good Instructions: ED Viral Syndrome Follow-Up: your,doctor in 1 week [Other] Prescriptions: Benzonatate [Tessalon Perle] 100 - 200 mg PO TID PRN #30 capsule PRN Reason: Cough Cetirizine HCl/Pseudoephedrine [Zyrtec-D Tablet] 1 each PO BID PRN #30 tab.er.12h PRN Reason: nasal congestion Comments: Return if you worsen. Follow-up with your doctor for further care. Use the medications as previously prescribed. Discharge Date/Time: 11/17/18 20:43
[2018-11-17 20:44] VITALS: BP 136/74
== END 2018-11-17 20:43 | disposition home or self-care (01) ==
LOC: ED 19:22
DX: J06.9 Acute upper respiratory infection, unspecified (principal); B97.89 Other viral agents as the cause of diseases classified elsewhere
CPT/HCPCS: 94640; 99283; A9270

== ENCOUNTER 2019-04-24 08:52 | Outpatient (CLI) | payer OTHER ==
--- NOTE | 2019-04-24 14:34 | MRI Report ---
Reason: PAIN IN RIGHT KNEE Procedure Date: 04/24/2019 Accession Number: [id number] / [id number] Procedure: MRI - Knee RT W/O CPT Code: FULL RESULT: EXAM: RIGHT KNEE MRI WITHOUT CONTRAST EXAM DATE: 04/24/2019 09:39 AM. CLINICAL HISTORY: Pain in right knee. COMPARISON: None. TECHNIQUE: Multiplanar, multisequence T1-weighted and fluid-sensitive sequences of the knee without contrast. Other: None. FINDINGS: Bones: No fractures or subluxations. No marrow edema. No bone lesions. Articular Cartilage: Severe chondromalacia inferior patella. Moderate chondromalacia mid medial tibiofemoral compartment. Medial Meniscus: The medial meniscus is intact. Lateral Meniscus: The lateral meniscus is intact. Cruciate Ligaments: The anterior and posterior cruciate ligaments are intact. Collateral Ligaments: The medial collateral and lateral collateral ligamentous structures are intact. Tendons: The quadriceps, patellar, semimembranosus, and popliteus tendons are unremarkable. Musculature: No edema or fatty atrophy. Other: Posterior knee 7 mm osseous body superficial to the distal PCL (image 13 series 701). No donor site identified. No popliteal cyst. No loose bodies. The medial and lateral retinacula are intact. The subcutaneous tissues and fat pads are unremarkable. Trace edema superolateral aspect infrapatellar fat pad. High position of the patella. IMPRESSION: 1. Negative for meniscus tear or internal derangement. 2. Severe chondromalacia inferior patella. 3. High position of the patella. 4. Osseous body posterior joint space 7 mm superficial to the distal PCL. RADIA
== END 2019-04-24 08:53 | disposition home or self-care (01) ==
LOC: DI 08:52
PROVIDERS: ATTEND Physician Assistant
DX: M22.41 Chondromalacia patellae, right knee (principal)

== ENCOUNTER 2019-07-02 08:06 | Emergency (ER) | payer OTHER ==
[2019-07-02 08:21] VITALS: BP 124/73
[2019-07-02] MEDS ORDERED: ALBUTEROL NEB 2.5 MG/3 ML INH STA (08:43)
--- NOTE | 2019-07-02 09:04 | ED Physician Documentation ---
History of Present Illness - Stated complaint Stated Complaint: SORE THROAT - Chief complaint Chief Complaint: Heent - History obtained from History obtained from: Patient - History of Present Illness Timing: How many days ago (3) Pain level max: 3 Pain level now: 2 - Additonal information Additional information: 29-year-old female presents the emergency department with fever, cough, nasal congestion and sore throat. Worse with swallowing. Better with rest. Has not taken anything at home. States that she may be . 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 HEENT: None Psych: Anxiety, Panic attacks, Post traumatic stress disorder Musculoskeletal: None Derm: None - Past Surgical History Past Surgical History: Yes General: 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: Endometrial ablation HEENT: Tonsil/Adenoidectomy - Present Medications Home Medications: Ambulatory Orders Medication Instructions Recorded Confirmed Albuterol Sulfate [Proair 90 mcg IH Q4HR PRN #1 aer.pow.ba 07/02/19 Respiclick] Cetirizine HCl/Pseudoephedrine 1 each PO BID PRN #30 tab.er.12h 07/02/19 [Zyrtec-D Tablet] - Allergies Allergies/Adverse Reactions: Allergies Allergy/AdvReac Type Severity Reaction Status Date / Time naproxen [From Naprosyn] Allergy Hives Verified 11/17/18 19:35 Penicillins Allergy Hives Verified 11/17/18 19:35 Sulfa (Sulfonamide Allergy Hives Verified 11/17/18 19:35 Antibiotics) - Social History Does the pt smoke?: No Smoking Status: Never smoker Does the pt drink ETOH?: Yes Does the pt have substance abuse?: No - Immunizations Immunizations are current?: Yes - POLST Patient has POLST: No PD ED PE NORMAL - Vitals Vital signs reviewed: Yes - General General: Alert and oriented X 3, No acute distress - HEENT HEENT: PERRL, Ears normal, Moist mucous membranes, Other (mild posterior Oropharyngeal erythema with slight tonsillar exudate. Uvula midline. Normal phonation. No trismus.) - Neck Neck: Supple, no meningeal sign - Cardiac Cardiac: RRR, Strong equal pulses - Respiratory Respiratory: No respiratory distress, Other (Mild diminished breath sounds bilaterally) - Abdomen Abdomen: Soft, Non tender, Non distended - Derm Derm: Warm and dry, No rash - Neuro Neuro: Alert and oriented X 3 - Psych Psych: Normal mood, Normal affect Results - Vitals Vitals: Vital Signs - 24 hr 07/02/19 07/02/19 08:19 08:59 Temperature 37.3 C Heart Rate 96 94 Respiratory 20 16 Rate Blood Pressure 124/73 O2 Saturation 98 Oxygen O2 Source Room air - Labs Labs: Laboratory Tests 07/02/19 07/02/19 09:10 09:10 Ur Specific [place] 1.025 Urine HCG, Qual NEGATIVE Group A Strep Rapid Negative PD MEDICAL DECISION MAKING - ED course Complexity details: reviewed results, re-evaluated patient, considered differential, d/w patient ED course: 29-year-old female presents the emergency department with what appears to be a viral upper respiratory infection. She is well-appearing, nontoxic. No hypoxia. Feels better after nebulizer treatment. No indication for antibiotics at this time. Patient counseled regarding signs and symptoms for which I believe and urgent re-evaluation would be necessary. Patient with good understanding of and agreement to plan and is comfortable going home at this time This document was made in part using voice recognition software. While efforts are made to proofread this document, sound alike and grammatical errors may occur. Departure - Departure Disposition: 01 Home, Self Care Clinical Impression: Viral pharyngitis, Viral URI Condition: Good Instructions: ED Pharyngitis Viral, ED Viral Syndrome Follow-Up: Aarti Stiles MD [Primary Care Provider] - Within 1 week Prescriptions: Albuterol Sulfate [Proair Respiclick] 90 mcg IH Q4HR PRN #1 aer.pow.ba PRN Reason: Dyspnea Cetirizine HCl/Pseudoephedrine [Zyrtec-D Tablet] 1 each PO BID PRN #30 tab.er.12h PRN Reason: nasal congestion Comments: Return if you worsen. Your testing is normal today. Follow-up with your doctor for further care. Drink plenty of fluids and rest. Discharge Date/Time: 07/02/19 10:07
[2019-07-02 09:25] LABS: HCG UR QUAL NEGATIVE
[2019-07-02] MEDS ORDERED: CHERRY SYRUP 10 ML UDC PO ONE (09:55)
[2019-07-02] MEDS ORDERED: DEXAMETHASONE 10 MG/ML VIAL PO STA (09:55)
== END 2019-07-02 10:07 | disposition home or self-care (01) ==
LOC: ED 08:06
DX: J06.9 Acute upper respiratory infection, unspecified (principal); J02.8 Acute pharyngitis due to other specified organisms
CPT/HCPCS: 81025; 87070; 87430; 99283

== ENCOUNTER 2020-04-21 09:53 | Emergency (ER) | payer OTHER ==
--- NOTE | 2020-04-21 11:47 | ED Physician Documentation ---
PD HPI SKIN - Stated complaint Stated Complaint: R WRIST WOUND - Chief complaint Chief Complaint: Wound - History obtained from History obtained from: Patient - Additional information Additional information: Patient comes emergency department for postoperative wound check after her Steri-Strips came loose and she found them to be stuck to her absorbable sutures. Patient had a mass removal from her right left wrist about a week and a half ago and states that the recovery has been going well as far as the wound. No redness or drainage. No wound dehiscence. Patient states she was not sure what to do about the sutures and so she came here. No other complaints at this time. Review of Systems Ten Systems: 10 systems reviewed and negative Constitutional: reports: Reviewed and negative Eyes: reports: Reviewed and negative Ears: reports: Reviewed and negative Nose: reports: Reviewed and negative Throat: reports: Reviewed and negative Cardiac: reports: Reviewed and negative Respiratory: reports: Reviewed and negative GI: reports: Reviewed and negative : reports: Reviewed and negative Skin: reports: Reviewed and negative Musculoskeletal: reports: Reviewed and negative Neurologic: reports: Reviewed and negative Psychiatric: reports: Reviewed and negative Endocrine: reports: Reviewed and negative Immunocompromised: reports: Reviewed and negative PD PAST MEDICAL HISTORY - Past Medical History Cardiovascular: None Respiratory: None Neuro: None Endocrine/Autoimmune: None GI: None RAND SEWER: None : None HEENT: None Psych: None Musculoskeletal: Other Derm: Other - Past Surgical History Past Surgical History: Yes General: Cholecystectomy /RAND SEWER: Endometrial ablation HEENT: Tonsil/Adenoidectomy Derm: Other - Present Medications Home Medications: Ambulatory Orders Medication Instructions Recorded Confirmed Valacyclovir HCl [Valtrex] 500 mg PO DAILY 04/09/20 04/12/20 - Allergies Allergies/Adverse Reactions: Allergies Allergy/AdvReac Type Severity Reaction Status Date / Time naproxen [From Naprosyn] Allergy Anaphylaxis Verified 04/09/20 10:48 Penicillins Allergy Hives Verified 04/09/20 10:48 Sulfa (Sulfonamide Allergy Hives Verified 04/09/20 10:48 Antibiotics) - Social History Does the pt smoke?: No Smoking Status: Never smoker Does the pt drink ETOH?: Yes Does the pt have substance abuse?: No - Immunizations Immunizations are current?: Yes - POLST Patient has POLST: No PD ED PE NORMAL - Vitals Vital signs reviewed: Yes - General General: Alert and oriented X 3, No acute distress - HEENT HEENT: Atraumatic, PERRL, EOMI, Moist mucous membranes - Neck Neck: Supple, no meningeal sign - Cardiac Cardiac: Strong equal pulses - Respiratory Respiratory: No respiratory distress - Derm Derm: Warm and dry, Other (Well-healed surgical incision site at R ulnar aspect of wrist/hand. absorbable subcuticular suture ends visible at ends of wound. Steri-strips attached to suture ends.) - Extremities Extremities: No deformity - Neuro Neuro: Alert and oriented X 3 - Psych Psych: Normal mood, Normal affect Results - Vitals Vitals: Vital Signs - 24 hr 04/21/20 04/21/20 10:05 11:50 Temperature 37 C 37.2 C Heart Rate 78 78 Respiratory 16 14 Rate Blood Pressure 127/85 H 122/78 O2 Saturation 99 99 Oxygen O2 Source Room air PD MEDICAL DECISION MAKING - ED course Complexity details: considered differential, d/w patient ED course: I removed the Steri-Strips, which had already completely detached from the skin itself, and trimmed the ends of the sutures to the skin. I have discussed wound care with pt, as well as the usual indications for return. Departure - Departure Disposition: 01 Home, Self Care Clinical Impression: Encounter for postoperative wound check Condition: Stable Instructions: ED Wound Care Discharge Date/Time: 04/21/20 11:50
[2020-04-21 11:51] VITALS: BP 122/78
== END 2020-04-21 11:50 | disposition home or self-care (01) ==
LOC: ED 09:53
DX: Z48.01 Encounter for change or removal of surgical wound dressing (principal)
CPT/HCPCS: 99281; 99282

== ENCOUNTER 2020-05-22 09:18 | Outpatient (CLI) | payer OTHER ==
--- NOTE | 2020-05-22 14:50 | MRI Report ---
PROCEDURE: Knee RT W/O INDICATIONS: PAIN IN RIGHT KNEE TECHNIQUE: Noncontrast sagittal PD fast spin echo and T2 fast spin echo with fat saturation, sagittal 3-D gradie nt sequence with fat saturation; coronal T1 spin echo and PD fast spin echo with fat saturation, and axial PD fast spin echo with fat saturation through the knee. COMPARISON: MRI knee 04/24/2019. FINDINGS: Image quality: Diagnostic with mild inhomogeneous fat saturation and motion artifact. Menisci: The medial and lateral menisci demonstrate normal morphology and internal signal. The meni scal root ligaments appear intact. Cruciate ligaments: The anterior and posterior cruciate ligaments appear intact. Medial structures: The medial collateral ligament appears intact. The semimembranosus tendon insert ions appear intact. Visualized portions of the pes anserinus tendons appear normal. No abnormal bur danika fluid. Lateral structures: The fibular collateral ligament and biceps femoris tendon appear intact. The po pliteal tendon and the meniscofemoral ligaments appear intact. Anterior structures: The quadriceps and patellar tendons appear intact. Patellar alignment is aleida l. No femoral trochlear dysplasia or ventral trochlear prominence. There is minimal edema within the superolateral aspect of the infrapatellar fat pad. Bones and cartilage: No bone marrow contusions or fractures. There is moderate cartilage thinning i n the patellofemoral compartment with chondral fissuring along the patella, most prominent inferiorly . There is mild associated subchondral edema. The articular cartilage in the medial and lateral alexis rtments appear preserved in thickness. Joint space: There is physiologic knee joint fluid. A small joint body measuring up to 0.6 cm is red emonstrated within the posterior joint recess superficial to the posterior cruciate ligament. No Kevyn er?s cyst. Normal appearing synovial plicae are incidentally noted. IMPRESSION: 1. Moderate chondromalacia redemonstrated along the patella, most prominent inferiorly. 2. Small joint body redemonstrated in a posterior joint recess adjacent to the PCL. 3. Minimal edema within the superolateral aspect of the infrapatellar fat pad is nonspecific but may reflect mild impingement. Reviewed by: Jacky Ramirez MD on 05/22/2020 1:49 PM SARAH Approved by: Jacky Ramirez MD on 05/22/2020 1:49 PM AKDT Station ID: [id number]
== END 2020-05-22 09:19 | disposition home or self-care (01) ==
LOC: DI 09:18
PROVIDERS: ATTEND Orthopaedic Surgery
DX: M25.561 Pain in right knee (principal); M94.261 Chondromalacia, right knee

== ENCOUNTER 2020-06-07 06:31 | Day surgery (SDC) | payer OTHER ==
[2020-06-07] MEDS ORDERED: fentaNYL 100 MCG/2 ML VIAL IVP ONE (06:32)
[2020-06-07] MEDS ORDERED: ePHEDrine 50 MG/ML VIAL IVP ONE (06:32)
[2020-06-07] MEDS ORDERED: PROPOFOL 200 MG/20 ML VIAL IVP ONE (06:32)
[2020-06-07] MEDS ORDERED: MIDAZOLAM 2 MG/2 ML VIAL IVP ONE (06:32)
[2020-06-07] MEDS ORDERED: KETOROLAC 30 MG/ML VIAL IVP ONE (06:32)
[2020-06-07] MEDS ORDERED: ONDANSETRON 4 MG/2 ML VIAL IVP ONE (06:32)
[2020-06-07] MEDS ORDERED: DEXAMETHASONE 4 MG/ML VIAL IVP ONE (06:32)
[2020-06-07] MEDS ORDERED: ACETAMINOPHEN 1,000 MG/100 ML 100 ML IV ONE ×2 (06:32→06:41)
[2020-06-07] MEDS ORDERED: LACTATED RINGERS 1,000 ML IV ONE ×2 (06:35→10:30)
[2020-06-07] MEDS ORDERED: SCOPOLAMINE PATCH TOP ONE (06:40)
[2020-06-07] MEDS ORDERED: GABAPENTIN 400 MG CAPSULE ONE (06:41)
[2020-06-07] MEDS ORDERED: CLINDAMYCIN 600 MG/50 ML 50 ML IV ONE (06:42)
[2020-06-07 06:59] LABS: HCG UR QUAL NEGATIVE
--- NOTE | 2020-06-07 07:14 | ANESTHESIA ---
Pre-Anesthesia VS, & Labs - Diagnosis Right Arm Nerve Disfunction - Procedure Right Cubital Tunnel Release Vital Signs: Temp Pulse Resp BP Pulse Ox 36.5 C 79 12 117/74 98 06/07/20 06:35 06/07/20 06:35 06/07/20 06:35 06/07/20 06:35 06/07/20 06:35 Height: 5 ft 7 in Weight (kg): 95.25 kg Body Mass Index: 32.8 BMI Classification: Obese - NPO >8 hours - Is Patient ?: No Home Medications and Allergies Valacyclovir HCl [Valtrex] 500 mg PO DAILY 04/09/20 Allergies/Adverse Reactions: Allergies Allergy/AdvReac Type Severity Reaction Status Date / Time naproxen [From Naprosyn] Allergy Anaphylaxis Verified 06/03/20 12:56 Penicillins Allergy Hives Verified 06/03/20 12:56 Sulfa (Sulfonamide Allergy Hives Verified 06/03/20 12:56 Antibiotics) hydromorphone [From Dilaudid] AdvReac Nausea Verified 06/03/20 12:56 Anes History & Medical History - Anesthetic History Family history of Anesthesia Complications: Denies Family history of Malignant Hyperthermia: Denies - Medical History Cardiovascular: reports: None Pulmonary: reports: None Gastrointestinal: reports: None Urinary: reports: None Neuro: reports: None Musculoskeletal: reports: Other Endocrine/Autoimmune: reports: None Blood Disorders: reports: None Skin: reports: None Smoking Status: Never smoker - Surgical History General: Cholecystectomy Eyes Ears Nose Throat (EENT): Tonsil/Adenoidectomy Gynecologic: Endometrial ablation Orthopedic: Other Dermatologic: Other Exam General: Alert, Oriented x3, Cooperative, No acute distress Dental: WNL Mouth Openin Fingerbreadth Neck Mobility: Normal Mallampati classification: I Plan Anesthesia Type: General Consent for Procedure(s) Verified and Reviewed: Yes Code Status: Attempt Resuscitation ASA classification: 2-Mild systemic disease (PTSD) Is this case an emergency?: No
[2020-06-07] MEDS ORDERED: ONDANSETRON 4 MG/2 ML VIAL IVP PRN ×2 (07:15→10:26)
[2020-06-07] MEDS ORDERED: ATROPINE ABBOJECT 1 MG/10 ML SYRINGE IVP PRN (07:15)
[2020-06-07] MEDS ORDERED: fentaNYL 100 MCG/2 ML VIAL IVP PRN (07:15)
[2020-06-07] MEDS ORDERED: ePHEDrine 50 MG/ML VIAL IVP PRN (07:15)
[2020-06-07] MEDS ORDERED: NALOXONE 0.4 MG/ML VIAL IVP PRN (07:15)
[2020-06-07] MEDS ORDERED: BUPIVACAINE 0.25% PF 30 ML VIAL ONE (07:17)
[2020-06-07] MEDS ORDERED: LIDOCAINE 1%-EPI 1:100000 20 ML MDV ONE (07:27)
[2020-06-07] MEDS ORDERED: LACTATED RINGERS 1,000 ML IV SCH (08:00)
[2020-06-07] MEDS ORDERED: LIDOCAINE 1%-EPI 1:100000 20 ML MDV SUBQ ONE (08:00)
[2020-06-07] MEDS ORDERED: BUPIVACAINE 0.25% PF 30 ML VIAL SUBQ ONE (10:02)
[2020-06-07] MEDS ORDERED: oxyCODONE 5 MG TABLET PO PRN (10:26)
[2020-06-07] MEDS ORDERED: PROMETHAZINE 25 MG TABLET PO PRN (10:29)
[2020-06-07] MEDS ORDERED: HYDROcod/ACETAM 5/325 MG TABLET PO PRN (10:29)
--- NOTE | 2020-06-07 10:45 | OPERATIVE REPORT ---
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 Specimen(s) Information: None Complication(s): None Condition: Stable to recovery Indications for Surgery: The patient is a 29-year-old [id number] female with a several year history of right ulnar nerve symptoms. She describes her symptoms primarily as pain along the medial forearm with radiation down into the hand, primarily into the ulnar 2 digits. Recently she reports increasing weakness in cork grinder strength of the right hand as well as concerns about holding and lifting objects and she is afraid she is going to drop them. She has problems with typing. She had a nerve conduction study that demonstrated demyelination of the ulnar nerve at the elbow, without acute denervation changes of the muscles. It did not suggest a conduction block at Guyon's [id number]. Clinically her nerve is very irritable and she has almost instantaneous numbness with any compression about the elbow. Exam demonstrated a positive Tinel and positive flexion compression test, on range of motion however preoperatively the nerve felt stable behind the medial epicondyle. She has weakness with montes pinch, a negative Wartenberg escape sign, and decreased strength, 4/5 of the FDP to the ring and ulnar fingers as well as her interossei. She had tried approximately 6 weeks of splinting and elbow pad wear without improvement in her symptoms. On the contrary, her symptoms seem to be getting worse. The patient was counseled on treatment options to include continued nonoperative treatment in the form of activity modification, splinting versus surgical release of the ulnar nerve with an in situ decompression. We also discussed that should the nerve be unstable at the time of surgery that we would complete an anterior transposition. Risks of surgery were discussed to include bleeding, infection, postoperative elbow stiffness, failure to relieve symptoms, damage to nerves, vessels, tendons, ligaments, bone and cartilage, we specifically discussed risk of injury to the ulnar nerve as well as the crossing branches of the medial antebrachial cutaneous nerve. We discussed that should branches of the MABCN be cut, she may have areas of numbness along the medial elbow, as well as the potential for painful neuroma formation. We also discussedanesthesia complications to include medication side effects and allergic reactions and even . After a long discussion, they wished to proceed. Findings: Thickened ulnar nerve at the medial epicondyle, the nerve was grossly unstable to the flexion with snapping over the medial epicondyle. It appeared that a small bursa had formed over the medial epicondyle and the nerve as a result of this. Descriptions of Procedure: The patient was met in the Preoperative Holding Area, at which time preoperative paperwork was confirmed. The right elbow was signed. The patient was then brought to Main Operating Room, placed supine on the Operating Room table, at which time pre procedure timeout was conducted to confirm correct patient, correct extremity and correct procedure and also to confirm presence and sterility of all required equipment and to confirm that antibiotics were being administered in the form of 600 mg of IV clindamycin. After this was confirmed, general anesthesia was induced. The operative extremity was then prepped and draped over a hand table in the normal sterile fashion. A sterile well-padded tourniquet was placed on the proximal arm. A final timeout was conducted to confirm the correct patient, correct extremity and correct procedure and to confirm that antibiotics had been administered within 30 minutes of incision time. Following timeout the planned incision was infiltrated with 10 mL of 1% lidocaine with epinephrine to assist with hemostasis and provide some gentle Dunlap dissection. The operative extremity was then exsanguinated with an Esmarch bandage and tourniquet inflated to 200mmHg. An approximately 8 cm longitudinal incision was made centered posterior to the tip of the medial epicondyle proceeding distally approximately 3.5 cm and proximally 4.5 cm in line with the course of the ulnar nerve. The skin and dermis were sharply incised, followed by blunt dissection with tenotomy scissors through through through the subcutaneous fat. Care was taken to identify any crossing branches of the medial antebrachial cutaneous nerve, none were identified within the surgical field. The incision was carried deep, and Gonzalez's ligament overlying the cubital tunnel was sharply incised, revealing the ulnar nerve. The cubital tunnel was then released, and the dissection proceeded proximally and distally. Once the nerve was decompressed, the elbow was taken through range of motion. The nerve was grossly unstable within the cubital tunnel with with easy anterior subluxation beyond the medial epicondyle with elbow flexion. Based on this, the decision was made to proceed with a transposition. The medial intermuscular septum was identified and an approximately 5 cm segment was excised sharply. Palpation confirmed an adequate resection. The nerve was further decompressed proximally to the crossover point and distally well into the muscle of the FCU. Care was taken to identify the first sensory branch to the medial elbow capsule as well as the first motor branch to the FCU. Once the nerve been adequately freed, mobility was checked, and was found to be tethered distally with a muscular branch to the FCU. The motor branch to the FCU was internally neurolysed to improve excursion. The nerve was then placed anterior to the medial epicondyle in a robust soft tissue bed, and the elbow was taken through full range of motion to ensure no new points of kinking or compression. Satisfied that the nerve was not tethered or kinked in any way, a 1 cm x 1 cm proximally based fascial flap was raised from the medial epicondyle and secured to the dermis using 0 Vicryl in h orizontal mattress fashion. This created a nice supportive sling for the ulnar nerve, and acted as a check rein to posterior translation. The arm was again taken through full range of motion and the ulnar nerve was noted to be free of tension, with good gliding. The wound was then copiously irrigated, and the tourniquet was let down. Manual pressure was held for 5 minutes, after which point bipolar bipolar cautery was used to coagulate any bleeding points. The deep tissue was closed using interrupted 0 Vicryl, the wound was again irrigated and the subcutaneous tissue was closed using 2-0 Vicryl in interrupted fashion, followed by a running subcuticular suture using 3-0 Monocryl. Mastisol and Steri-Strips were placed. 20 mL of quarter percent Marcaine plain was injected in the periincisional soft tissues for postoperative pain control. The wound was dressed with Xeroform, plain 4x4 gauze, followed by webril, pound cotton, and a compressive Jon wrap. The patient was then awakened from general anesthesia without complication, brought to the Post Anesthesia Care for further recovery. Postoperative Plan: 1. The patient will be discharged from the Same Day Surgery Unit when discharge criteria are met. 2. The patient will remain in a compressive soft dressing until follow-up, this will be removed in clinic. 3. Patient can start gentle elbow range of motion on postoperative day 1-2 as his pain allows, to facilitate nerve gliding. 4. Expect return to full duty in 12 weeks.
[2020-06-07] MEDS ORDERED: fentaNYL 100 MCG/2 ML VIAL ONE (10:52)
[2020-06-07] MEDS ORDERED: ONDANSETRON 4 MG/2 ML VIAL ONE (10:52)
--- NOTE | 2020-06-07 10:59 | ANESTHESIA POST OP EVALUATION ---
Anesthesia Post Eval - Post Anesthesia Eval Vitals: Last Vital Signs Temp 36.6 C 06/07/20 10:55 Pulse 97 06/07/20 10:55 Resp 12 06/07/20 10:55 BP 112/66 06/07/20 10:55 Pulse Ox 99 06/07/20 10:55 CV Function Including HR & BP: positive: Stable Pain Control: positive: Satisfactory Nausea & Vomiting: positive: Negative Mental Status: positive: Patient Participates Respiratory Status: Airway Patent Hydration Status: Satisfactory Anesthesia Complications: positive: None
[2020-06-07 11:45] VITALS: BP 106/55
[2020-06-07] MEDS ORDERED: HYDROcod/ACETAM 5/325 MG TABLET ONE (11:46)
== END 2020-06-07 06:32 | disposition home or self-care (01) ==
LOC: SDS 06:31
PROVIDERS: ATTEND Orthopaedic Surgery
DX: G56.21 Lesion of ulnar nerve, right upper limb (principal); F43.10 Post-traumatic stress disorder, unspecified
CPT/HCPCS: 81025

== ENCOUNTER 2020-10-08 06:16 | Day surgery (SDC) | payer OTHER ==
[2020-10-08] MEDS ORDERED: LACTATED RINGERS 1,000 ML IV ONE ×3 (06:45→10:49)
[2020-10-08 06:46] LABS: HCG UR QUAL NEGATIVE
[2020-10-08] MEDS ORDERED: EPINEPHrine 1 MG/ML AMP ONE (07:15)
[2020-10-08] MEDS ORDERED: BUPIVACAINE 0.5% PF 30 ML VIAL ONE (07:15)
[2020-10-08] MEDS ORDERED: fentaNYL 100 MCG/2 ML VIAL ONE ×2 (07:22→10:21)
[2020-10-08] MEDS ORDERED: MIDAZOLAM 2 MG/2 ML VIAL ONE (07:22)
[2020-10-08] MEDS ORDERED: PROPOFOL 200 MG/20 ML VIAL IVP ONE (07:23)
[2020-10-08] MEDS ORDERED: DEXAMETHASONE 4 MG/ML VIAL ONE (07:23)
[2020-10-08] MEDS ORDERED: KETOROLAC 30 MG/ML VIAL ONE (07:23)
[2020-10-08] MEDS ORDERED: SODIUM CHLORIDE 0.9% 10 ML ONE ×2 (07:23→08:21)
[2020-10-08] MEDS ORDERED: LIDOCAINE-MPF 2% 5 ML VIAL ONE (07:23)
[2020-10-08] MEDS ORDERED: ONDANSETRON 4 MG/2 ML VIAL ONE ×2 (07:23→10:14)
[2020-10-08] MEDS ORDERED: ONDANSETRON 4 MG/2 ML VIAL IVP PRN (07:26)
[2020-10-08] MEDS ORDERED: ePHEDrine 50 MG/ML VIAL IVP PRN (07:26)
[2020-10-08] MEDS ORDERED: ATROPINE ABBOJECT 1 MG/10 ML SYRINGE IVP PRN (07:26)
[2020-10-08] MEDS ORDERED: NALOXONE 0.4 MG/ML VIAL IVP PRN (07:26)
[2020-10-08] MEDS ORDERED: METOCLOPRAMIDE 10 MG/2 ML VIAL IVP PRN (07:26)
--- NOTE | 2020-10-08 07:29 | ANESTHESIA ---
Pre-Anesthesia VS, & Labs - Diagnosis right knee pain - Procedure right knee arthroscopy and chondroplasty Vital Signs: Temp Pulse Resp BP Pulse Ox 36.6 C 81 16 107/63 99 10/08/20 06:23 10/08/20 06:23 10/08/20 06:23 10/08/20 06:23 10/08/20 06:23 Height: 5 ft 7 in Weight (kg): 98 kg Body Mass Index: 33.8 BMI Classification: Obese - NPO >8 hours - Is Patient ?: No - Lab Results Lab results reviewed: Yes Home Medications and Allergies Home Medications: Ambulatory Orders No Known Home Medications 10/08/20 Active Medications Atropine Sulfate (Atropine Abboject 1 Mg/10 Ml Syringe) 0.5 mg IVP Q5M PRN PRN Reason: Bradycardia Stop: 10/09/20 07:26 Ephedrine Sulfate (Ephedrine 50 Mg/Ml Vial) 10 mg IVP Q5M PRN PRN Reason: HYPOTENSION Stop: 10/09/20 07:26 Fentanyl (Fentanyl 100 Mcg/2 Ml Vial) 25 - 50 mcg IVP Q5M PRN PRN Reason: BREAKTHROUGH PAIN (2nd Choice) Stop: 10/09/20 07:26 Clindamycin Phosphate (Cleocin 600 Mg/50 Ml) 50 mls @ 100 mls/hr IV ONCE HILDA Stop: 10/08/20 10:00 Lactated Ringer's (Lr) 1,000 mls @ 100 mls/hr IV .Q10H HILDA Stop: 10/08/20 17:59 Metoclopramide HCl (Metoclopramide 10 Mg/2 Ml Vial) 10 mg IVP Q6HR PRN PRN Reason: N/V not relieved by Zofran Naloxone HCl (Naloxone 0.4 Mg/Ml Vial) 0.1 mg IVP Q2M PRN PRN Reason: RESP RATE <8 Stop: 10/09/20 07:26 Ondansetron HCl (Ondansetron 4 Mg/2 Ml Vial) 4 mg IVP ONCE PRN PRN Reason: N/V (First Choice) Stop: 10/09/20 07:26 No Known Home Medications 10/08/20 Allergies/Adverse Reactions: Allergies Allergy/AdvReac Type Severity Reaction Status Date / Time naproxen [From Naprosyn] Allergy Anaphylaxis Verified 10/08/20 06:35 Penicillins Allergy Hives Verified 10/08/20 06:35 Sulfa (Sulfonamide Allergy Hives Verified 10/08/20 06:35 Antibiotics) hydromorphone [From Dilaudid] AdvReac Nausea Verified 10/08/20 06:35 Anes History & Medical History - Anesthetic History Anesthesia Complications: reports: No previous complications Family history of Anesthesia Complications: Denies Family history of Malignant Hyperthermia: Denies - Medical History Cardiovascular: reports: None Pulmonary: reports: None Gastrointestinal: reports: None Urinary: reports: None Neuro: reports: None Musculoskeletal: reports: Other Endocrine/Autoimmune: reports: None Blood Disorders: reports: None Skin: reports: None Smoking Status: Never smoker - Surgical History General: reports: Cholecystectomy Eyes Ears Nose Throat (EENT): reports: Tonsil/Adenoidectomy Gynecologic: reports: Endometrial ablation Orthopedic: reports: Other Dermatologic: reports: Other Exam General: Alert Dental: WNL Mouth Openin Fingerbreadth Mallampati classification: II Thyromental Distance: 4-6 cm Respiratory: Lungs clear, Normal breath sounds, No respiratory distress, No accessory muscle use Cardiovascular: Regular rate, Normal S1, Normal S2, No murmurs Abdomen: Normal bowel sounds, Soft, No tenderness, No hepatospenomegaly, No masses Extremities: No clubbing, No cyanosis, No edema, Normal pulses, No tenderness/swelling Neurological: Normal gait, Normal speech, Strength at 5/5 X4 ext, Normal tone, Sensation intact, Cranial nerves 3-12 NL, Reflexes 2+ Mental/Cognitive Status: Alert/Oriented X3, Normal for patient Plan Anesthesia Type: General Consent for Procedure(s) Verified and Reviewed: Yes Code Status: Attempt Resuscitation ASA classification: 2-Mild systemic disease Is this case an emergency?: No
[2020-10-08] MEDS ORDERED: LIDOCAINE 2%-EPI 1:100000 20 ML MDV ONE ×2 (07:37→08:15)
[2020-10-08] MEDS ORDERED: CLINDAMYCIN 600 MG/50 ML 50 ML IV SCH (08:00)
[2020-10-08] MEDS ORDERED: LACTATED RINGERS 1,000 ML IV SCH (08:00)
[2020-10-08] MEDS ORDERED: LIDOCAINE 2%-EPI 1:100000 20 ML MDV SUBQ ONE (08:09)
[2020-10-08] MEDS ORDERED: EPINEPHrine 1 MG/ML AMP IR ONE (08:09)
[2020-10-08] MEDS ORDERED: ePHEDrine 50 MG/ML VIAL IVP ONE (08:21)
--- NOTE | 2020-10-08 09:54 | XRAY Report ---
PROCEDURE: Chest 1 View X-Ray INDICATIONS: ASPIRATION TECHNIQUE: One view of the chest was acquired. COMPARISON: 05/30/2018 FINDINGS: Surgical changes and devices: Endotracheal tube tip projects approximately 1.5 cm above the emely.. Lungs and pleura: Mild diffuse interstitial prominence predominantly in the upper and midlung zones. No focal consolidation. Minimal perihilar airway thickening, likely related to hypoventilatory newman es. No substantial pleural effusions or pneumothorax. Mediastinum: Mediastinal contours appear normal. Heart size is normal. Bones and chest wall: No suspicious bony lesions. Overlying soft tissues appear unremarkable. IMPRESSION: 1. Endotracheal tube tip projects approximately 1.5 cm above the emely. 2. Mild diffuse interstitial prominence predominantly in the upper and mid lung zones without focal c onsolidation. Minimal perihilar airway thickening. Combination of findings possibly related to decrea sed lung aeration. Early inflammatory/infectious changes not excluded. Early aspiration may not be vi sible. Recommend short interval follow-up imaging for persistent symptoms. Reviewed by: Eliezer Ledbetter MD on 10/08/2020 9:53 AM PST Approved by: Eliezer Ledbetter MD on 10/08/2020 9:53 AM PST Station ID: [id number]
[2020-10-08] MEDS ORDERED: BUPIVACAINE 0.5% PF 30 ML VIAL INFIL ONE (10:01)
[2020-10-08] MEDS ORDERED: oxyCODONE 5 MG TABLET PO PRN (10:04)
[2020-10-08] MEDS ORDERED: PROMETHAZINE INJ 25 MG in SODIUM CHLORIDE 0.9% 50 ML IV PRN (10:07)
[2020-10-08] MEDS: fentaNYL 100 MCG/2 ML VIAL IVP PRN ×2 (10:14→11:10)
[2020-10-08] MEDS ORDERED: PROMETHAZINE 25 MG/1 ML VIAL ONE (10:27)
--- NOTE | 2020-10-08 10:35 | OPERATIVE REPORT ---
Operative Report - Other Other Information/Narrative: Date of Procedure: 08 October 2019 Planned Procedure: Right knee arthroscopy, chondroplasty, possible loose body removal Pre-op diagnosis: Right knee patellar chondromalacia, entrapped loose body in the posterior septum above the PCL Procedure performed: Right knee arthroscopy, patellar chondroplasty, medial lateral meniscus debridement, pathologic plica debridement loose body removal from mid intercondylar notch Post-op diagnosis: Right knee patellar chondromalacia, posterior horn lateral meniscus undersurface fraying, body and anterior horn medial meniscus free edge fraying, pathologic medial plica, loose body within the notch, presumed loose body in the posterior septum Primary Surgeon: PAM WATSON Secondary Surgeon: None Anesthesia: General LMA then ET tube EBL: 5 ml Tourniquet: Placed but not inflated. Arthroscopic findings right knee: 1. Patella: Diffuse crabmeat changes and fissuring of the patellar cartilage. This was systematically debrided with a combination of arthroscopic curettes and the sucker shaver to a stable rim. Following debridement, the area of chondral wear encompassed nearly the full width of the patella, approximately 30 mm from medial to lateral and approximately 15 mm from proximal to distal. 2. Trochlea: Mild trochlear grooving otherwise intact 3. Medial Compartment: Medial meniscal root intact, posterior horn medial meniscus intact, body of the medial meniscus with some free edge fraying as well as some meniscocapsular junction fraying, anterior horn with free edge fraying into the intrameniscal ligament. This was debrided with the arthroscopic sucker shaver. Pathologic medial plica with some associated linear wear on the medial femoral condyle, the remainder of the medial femoral condyle cartilage was normal. Medial tibial cartilage normal. She had a prominent medial tibial spine that was intimately associated with the medial meniscal root and posterior femoral condyle and PCL. After debriding the ligamentum mucosum, I attempted a modified Gillquist maneuver under direct visualization into the posterior medial compartment however I could not safely do so without risking damage to the meniscal root, PCL or femoral cartilage. 4. Lateral Compartment: Lateral meniscal root intact, posterior horn lateral meniscus with some undersurface fraying this was debrided with the arthroscopic sucker shaver. Lateral meniscus body and anterior horn intact. Lateral femoral condyle cartilage overall intact. Lateral tibial cartilage with mild softening. A modified Gillquist maneuver was used to enter the posterior/lateral compartment, no loose bodies were observed. A 70 degree scope was used to visualize the septum, no loose body was appreciated. 5. ACL and PCL: Intact, intact. There is a pedunculated loose body just lateral to the ACL abutting the medial border of the lateral femoral condyle. This was grasped with a grasper and gator rolled to remove. The stalk was then debrided using the arthroscopic sucker shaver. 6. Synovium: Mild diffuse synovial injection. COMPLICATIONS: Presumed aspiration approximately 5 minutes prior to the end of the case, treated by anesthesia with removal of the LMA placement of an ET tube and suctioning. IMPLANTS: None Indications for surgery: 30-year-old female with a longstanding history of right knee pain. It was injured several years ago and it intermittently flares with significant pain at last flare approximately 1.5 years ago when she was at [employer], walking a lot. When it flares, she reports the knee becomes stiff painful and difficult to move. MRI and interval repeat MRI were obtained demonstrating significant ch ondromalacia patella as well as a stable and apparently synovialized loose body in the posterior knee, presumably in the septum just superior to the PCL. The position was unchanged from the initial to the follow-up MRI. The pain she experiences is intermittent, with a large component of retropatellar pain as well as some medial greater than lateral sided pain centered mainly on the joint line has associated diffuse soft tissue pain in the quads distal hamstring tendons and in the medial ankle greater than lateral gastrocnemius. She has failed multiple rounds of physical therapy and other conservative measures. We had a lengthy discussion about the potential benefits as well as limitations of surgery. I explained that her pain may not improve following surgery, and that primarily the surgery if successful would address the pain that she is feeling behind her kneecap, the other soft tissue pains that she is having would be unlikely to be improved by the surgery. We also discussed attempting to remove the loose body in the posterior septum, and I explained that I would attempt to do so however if at any point I felt that I could not safely localize the loose body, that I would not continue. She expressed understanding, and desired to proceed with surgery. We then discussed the risks, benefits, and alternatives . Risks include pain, bleeding, infection, damage to nearby structures (including neurovascular structures) and cartilage, lack of symptom relief, need for further surgery, DVT, PE, stroke, heart attack and . Written consent was obtained. Procedure Details: The patient was met in the pre-operative hold area. Consent was signed. The patient verified the surgical site as the right knee. The patient then met with anesthesia and was brought back to the operating room. The patient was placed supine on the operating table. A general anesthetic was administered and LMA was placed. A well-padded tourniquet was placed on the right thigh, however I planned to perform the case off tourniquet if possible. The right lower extremity was then prepped and draped in the usual sterile fashion. A surgical timeout was then performed. The correct patient, the correct procedure, and the correct surgical site were confirmed by everyone in the room. Perioperative antibiotics had been administered consisting of 600 mg of clindamycin. After surgical timeout and administration of antibiotics, I ayla out the superficial landmarks on the skin, and then injected the planned incision sites and the joint with a total of 30 mL of 2% lidocaine with epinephrine to assist with hemostasis. An 11 blade scalpel was used to make an anteromedial and anterolateral arthroscopic portal. The arthroscope was introduced into the knee and a diagnostic arthroscopy was performed with the above-stated findings. A pedunculated loose body was encountered in the lateral portion of the intercondylar notch. This was removed as above. Next we turned our attention to the patellar chondroplasty. The arthroscopic sucker shaver and arthroscopic curettes were used to complete the chondroplasty of the patella. The cartilage was debrided to a stable rim. After debridement and chondroplasty the the size of the lesion was approximately 15 mm from proximal to distal and 30 mm from medial to lateral. The pathologic medial plica was debrided at this point as well. I next turned my attention to accessing the posterior compartments. A switching stick was placed through the anteromedial portal, between the ACL and lateral femoral condyle, and then a second scope sheath was introduced over the switching stick under direct visualization. A 70 degree scope was placed into the posterior lateral compartment, and it was inspected for loose bodies. None were observed. I attempted to repeat this maneuver into the posterior medial compartment, however due to the geometry of the tibial spine femoral condyle PCL and meniscal root, the switching stick passed with difficulty however, I was unable to then place a scope sheath over the switching stick without risk to the aforementioned structures. Because I was unable to visualize from in the posterior medial compartment, a posterior medial portal was not established. The arthroscopic sucker shaver was used to remove any additional debris from the knee, and it was at this point, that the patient's leg started bucking a little bit. Anesthesia was notified, and it became apparent over the next minute or 2 that the patient may have aspirated. As this was occurring, the arthroscopic instruments had been removed from the knee and the fluid drained. The portals were closed with 3-0 Monocryl. 0.50% Marcaine plain was injected into the periarticular soft tissues. The incisions were dressed with Xeroform gauze, cotton gauze, an ABD and an Jon wrap. The surgical drapes were removed. At this point, anesthesia was suctioning the patient and proceeding with endotracheal intubation. Chest x-ray was obtained following intubation to evaluate the lung leija. Eventually the patient was successfully extubated after close monitoring of vital signs and lung sounds by the anesthesia team. The patient was transferred to the PACU for recovery, with planned admission to the hospitalist service for management of the presumed aspiration. Postoperative plan: 1. Admit for observation/to floor based on hospitalist recommendations and expectation of duration duration of admission. Appreciate hospitalist assistance in patient management. 2. Weightbearing with crutches initially, advance weightbearing as tolerated, range of motion as tolerated, and wean from crutches as tolerated. 3. Return to clinic in 1-2 weeks for wound check 4. Allow advancement of activities as tolerated with full clearance for all activities anticipated in 6-8 weeks postoperatively.
[2020-10-08] MEDS ORDERED: MEROPENEM 1 GM in SODIUM CHLORIDE 0.9% MINIBAG 100 ML IV SCH (12:00)
--- NOTE | 2020-10-08 12:35 | PHARMACY PROGRESS NOTE ---
- Best Possible Medication History Admit Date and Time: Processed by: Pharmacy Medication History completed: Yes Patient Interview: Pt interview ONLY source (Pt interviewed by Diamond 10/08) Patient is on no medications at home. As the person ultimately responsible for medication therapy, providers are able to order a medication from an existing home medication list in [facility] via the "Reconcile Routine" prior to Confirmation of that medication by learning support assistant. Such practice is discouraged except when the physician, in their clinical judgment, deems that a medical need exists for a medication without regard to previous use.
[2020-10-08] MEDS: HYDROcod/ACETAM 5/325 MG TABLET PO PRN (12:56)
[2020-10-08 13:07] LABS: C. PNEUMONIAE- RESP PCR PANEL NOT DETECTED
[2020-10-08 13:14] LABS: BASOPHILS # (AUTO) 0.1 10^3/uL (0.0-0.1); BASOPHILS % (AUTO) 0.3 %; EOSINOPHILS # (AUTO) 0.1 10^3/uL (0.0-0.7); EOSINOPHILS % (AUTO) 0.3 %; HGB - HEMOGLOBIN 13.1 g/dL (12.0-16.0); LYMPHOCYTES # (AUTO) 0.9 10^3/uL (1.5-3.5); LYMPHOCYTES % (AUTO) 4.8 %; MEAN CORPUSCULAR HEMOGLOBIN 30.3 pg (27.0-31.0); MEAN CORPUSCULAR HGB CONC 33.3 g/dL (32.0-36.0); MEAN CORPUSCULAR VOLUME 90.8 fL (81.0-99.0); MONOCYTES # (AUTO) 0.5 10^3/uL (0.0-1.0); MONOCYTES % (AUTO) 2.8 %; NEUTROPHILS # (AUTO) 16.1 10^3/uL (1.5-6.6); NEUTROPHILS % (AUTO) 91.3 %; PLT - PLATELET COUNT 309 10^3/uL (130-450); RED BLOOD COUNT 4.33 10^6/uL (4.20-5.40); RED CELL DISTRIBUTION WIDTH 12.7 % (12.0-15.0); WHITE BLOOD COUNT 17.7 x10^3/uL (4.8-10.8)
[2020-10-08 13:23] LABS: INR 1.2 (0.8-1.2); PT - PROTHROMBIN TIME 13.6 secs (9.9-12.6)
[2020-10-08 13:29] LABS: ALBUMIN 4.3 g/dL (3.2-5.5); ALBUMIN/GLOBULIN RATIO 1.5 (1.0-2.2); CALCIUM 8.9 mg/dL (8.5-10.3); CREATININE 0.7 mg/dL (0.4-1.0); TOTAL PROTEIN 7.2 g/dL (6.7-8.2)
[2020-10-08] MEDS: cefTRIAXone 2 GM in SODIUM CHLORIDE 0.9% MINIBAG 100 ML IV SCH (13:36)
--- NOTE | 2020-10-08 13:49 | ANESTHESIA POST OP EVALUATION ---
Anesthesia Post Eval - Post Anesthesia Eval Vitals: Last Vital Signs Temp 36.7 C 10/08/20 12:56 Pulse 86 10/08/20 13:30 Resp 18 10/08/20 13:30 BP 122/67 10/08/20 13:30 Pulse Ox 97 10/08/20 13:30 CV Function Including HR & BP: positive: Stable Pain Control: positive: Satisfactory Nausea & Vomiting: positive: Addtional Therapies Ordered Mental Status: positive: Baseline Respiratory Status: Airway Patent, Other (aspiration suspected, no cough, LS claer t/o, sat 100%) Hydration Status: Satisfactory Anesthesia Complications: positive: None (r/o aspiration during admit)
[2020-10-08] MEDS: metroNIDAZOLE 500 MG/100 ML 500 MG/100 ML BAG IV SCH ×2 (14:15→20:35)
[2020-10-08] MEDS: oxyCODONE 5 MG TABLET PO PRN ×2 (15:44→20:27)
--- NOTE | 2020-10-08 16:25 | CONSULTATION NOTE ---
DATE OF SERVICE: 10/08/2020 Physician: Chani Trujillo MD HISTORY OF PRESENT ILLNESS: This is a 30-year-old white female with a history of (possible) asthma, since she states that when she has had prior URIs, she has needed inhalers. She also has a history of undergoing [address] Leal; hand surgery and ulnar surgery last year. After each, she had some neuropathy symptoms, for which she needed a course of treatment, which it improved. She was in surgery today having an elective knee arthroscopy and chondroplasty, and at the very completion of the surgery, Anesthesia witnessed that she had aspiration of stomach contents, which was mostly bile. With this, the surgery had just been completed and she was then intubated and further suctioned and there was more bile that was suctioned out. A chest x-ray was done and she was taken to the PACU and will now be placed in same day surgery for a longer course of monitoring her pulmonary status. The orthopedic surgeon has requested consult from the Hospitalist team. The patient is awake, has been extubated, she has a cough with slight sputum production and states that she has pleuritic pain in the central chest, whenever she inhales or coughs. She also currently has pain in the right knee, that just had surgery. She has never had this type of aspirationproblem before. She denies lung disease in general, or any cardiac disease. Preoperatively today, she had received Clindamycin since SHE HAS AN ALLERGY TO SULFA AND TO PENICILLIN. She is currently not nauseated. She does feel dehydrated and is thirsty. PAST MEDICAL HISTORY: Prior orthopedic surgeries, prior use of inhalers whenever she has upper respiratory infections. MEDICATIONS: None. ALLERGIES 1. NAPROSYN, but not Motrin. 2. PENICILLIN AND SULFA BOTH GIVE HER HIVES. 3. HYDROMORPHONE, UNKNOWN SIDE EFFECT. FAMILY HISTORY: No inherited diseases. SOCIAL HISTORY: She is an ex-smoker, quit 10 years ago. She drinks no alcohol. There is no alcohol abuse history. She has no illicit drug use history. She lives with her daughter and her . 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 REVIEW OF SYSTEMS: She states that 2 or 3 years ago, she was exposed to mold in her position of obtaining evidence, which gave her several URIs that year. She has never had these types of symptoms that she has today. A comprehensive review of systems was performed and the pertinent positives are listed, the rest are negative. PHYSICAL EXAM GENERAL: Young white female. She is in mild distress from pleuritic pain and knee pain. VITAL SIGNS: Blood pressure 101/63, heart rate 86-94 in sinus rhythm. She is afebrile. Room air saturation 96-100%. HEENT: Reveals dry oral mucosa and dry lips. NECK: No JVD or carotid bruits. CHEST: Clear. No rales, rhonchi or wheezes. HEART: No audible murmurs, no gallop. ABDOMEN: Soft, nontender. No organomegaly. EXTREMITIES: No clubbing, cyanosis or edema. Negative Homans sign. NEUROLOGIC: Grossly intact. LABORATORY DATA: These were done after her surgery today and show a white blood count of 17.7 with high neutrophils of 16.1, hemoglobin 13.1 and platelet count normal at 309. INR normal at 1.2. Chemistry was done after surgery, showed a sodium of 138, potassium 3.4. Normal electrolytes. Normal BUN and creatinine, normal magnesium of 2 and normal liver tests and a respiratory PCR was done and was negative for everything including COVID. HCG was done before surgery and was negative. IMAGING: Chest x-ray, which was done immediately after the witnessed aspiration and showed: Endotracheal tube was at 1.5 cm above the emely at that moment. She had diffuse interstitial prominence, mostly in the upper and mid lung zones, but no focal consolidation and the impression was that of early inflammation or infectious changes or early aspiration and a short interval followup x-ray was advised. EKG: not done. IMPRESSION/DIAGNOSES: 1. Aspiration into airway 2. Aspiration pneumonitis. 3. Pleuritic chest pain. 4. Status post right knee arthroscopy. 5. Hypokalemia. RECOMMENDATIONS: Postop pain management, DVT prophylaxis and diet as per Orthopedics. Recommend starting empiric IV antibiotics for potential pneumonia, which develops in approximately 25% or more of patients who have had witnessed aspiration. She does have signs of already having pneumonitis, which includes her burning pleuritic pain and the changes on chest x-ray. There has been no evidence that steroid use improves or speeds up the healing of the pneumonitis. Therefore, this will not be ordered. We will order Mucinex for pulmonary toilet, however, since she already has a cough and Cepacol use as needed, for any throat pain or burning. If she can, continue to take oral liquids, and this will be continued, and diet and advance as tolerated. But if she has throat pain with swallowing, then IV fluids will be started. A followup chest x-ray will be ordered to be done about 6 hours after the aspiration event. depending on any oxygen desaturation or worsening of her chest x-ray findings or respiratory status, she may need to be admitted to inpatient status for further aggressive medical management. Follow her CBC daily, correct her potassium and follow her BMP daily. DVT PROPHYLAXIS: As per Orthopedics. CODE STATUS: FULL CODE. Thank you for allowing me to participate in the care of this patient, who I will follow along with you. cc: MD CLIVE Dahl TD: 10/08/2020 16:05 MTDD
--- NOTE | 2020-10-08 17:05 | XRAY Report ---
PROCEDURE: Chest 1 View X-Ray INDICATIONS: Aspiration seen, eval for infiltrate TECHNIQUE: One view of the chest was acquired. COMPARISON: Chest radiograph from earlier same day FINDINGS: Surgical changes and devices: Patient has been extubated.. Lungs and pleura: Improved lung aeration. Previously seen diffuse interstitial prominence within the upper and middle lung zones have resolved. No significant perihilar airway thickening as before. No f ocal consolidations. No pleural effusion or pneumothorax. Mediastinum: Mediastinal contours appear normal. Heart size is normal. Bones and chest wall: No suspicious bony lesions. Overlying soft tissues appear unremarkable. IMPRESSION: Previously seen interstitial prominence and perihilar airway thickening have resolved postintubation. No focal airspace disease identified. There is also improved lung aeration. Findings likely represen clarita hypoventilatory changes. Overall, no progressing cardiopulmonary abnormalities or persistent foca l airspace disease. Reviewed by: Eliezer Ledbettre MD on 10/08/2020 5:04 PM PST Approved by: Eliezer Ledbetter MD on 10/08/2020 5:04 PM PST Station ID: [id number]
--- NOTE | 2020-10-08 17:36 | PROVIDER PROGRESS NOTE ---
Subjective - Prog Note Date Prog Note Date: 10/08/20 Prog Note Time: 17:34 - Subjective Subjective: 30F POD#0 s/p R knee arthroscopy and patellar chondroplasty with medial plica resection and loose body removal. Intra-op course complicated by presumed juliette ious aspiration, patient kept overnight for obs and serial chest XR. Tolerating diet thus far, ambulated with walker to bathroom, crutches subsequently provided. Minimal pain improvement with [place], Oxycodone used with good effect. Throat/chest sore and buringing now. Objective - Vital Signs/Intake & Output Vital Signs: Vital Signs x48h Temp Pulse Resp BP Pulse Ox 10/08/20 17:10 36.6 C 95 16 109/64 96 10/08/20 16:11 36.6 C 93 16 112/70 99 10/08/20 15:08 36.6 C 94 16 112/65 100 10/08/20 14:02 36.8 C 89 16 101/63 96 10/08/20 13:30 86 18 122/67 97 10/08/20 12:56 36.7 C 93 18 115/63 100 10/08/20 12:16 36.7 C 81 105/66 99 10/08/20 12:01 36.4 C L 80 104/58 L 97 10/08/20 11:46 36.7 C 89 116/66 98 10/08/20 11:31 36.7 C 84 106/56 L 97 10/08/20 11:15 79 14 113/64 100 10/08/20 11:00 36.4 C L 76 15 107/66 100 10/08/20 10:45 93 15 110/61 100 10/08/20 10:30 99 16 116/69 96 10/08/20 10:20 36.4 C L 110 H 12 116/73 98 10/08/20 10:15 91 16 114/74 95 10/08/20 10:10 97 18 104/48 L 97 10/08/20 10:05 116 H 20 104/48 L 97 10/08/20 10:00 90 16 115/69 96 10/08/20 09:57 36.0 C L 97 12 118/65 100 Intake & Output: Intake & Output 10/05/20 10/06/20 10/07/20 10/08/20 23:59 23:59 23:59 23:59 Intake Total 500 Output Total 65 Balance 435 - Objective General Appearance: positive: Mild distress Eyes Bilateral: positive: Normal inspection Extremities: positive: Other (RLE with post surgical MIRYAM wrap in place. Ice pack behind knee.) - Lab Results Fish Bones: 10/08/20 13:08 10/08/20 13:08 Other Labs: Lab Results x24hrs 10/08/20 10/08/20 10/08/20 Range/Units 13:08 13:08 13:08 WBC 17.7 H (4.8-10.8) x10^3/uL RBC 4.33 (4.20-5.40) 10^6/uL Hgb 13.1 (12.0-16.0) g/dL Hct 39.3 (37.0-47.0) % MCV 90.8 (81.0-99.0) fL MCH 30.3 (27.0-31.0) pg MCHC 33.3 (32.0-36.0) g/dL RDW 12.7 (12.0-15.0) % Plt Count 309 (130-450) 10^3/uL MPV 9.0 (7.9-10.8) fL Neut # (Auto) 16.1 H (1.5-6.6) 10^3/uL Lymph # (Auto) 0.9 L (1.5-3.5) 10^3/uL Robeson # (Auto) 0.5 (0.0-1.0) 10^3/uL Eos # (Auto) 0.1 (0.0-0.7) 10^3/uL Baso # (Auto) 0.1 (0.0-0.1) 10^3/uL Absolute Nucleated RBC 0.00 x10^3/uL Nucleated RBC % 0.0 /100WBC PT 13.6 H (9.9-12.6) secs INR 1.2 (0.8-1.2) Sodium 138 (135-145) mmol/L Potassium 3.4 L (3.5-5.0) mmol/L Chloride 103 (101-111) mmol/L Carbon Dioxide 24 (21-32) mmol/L Anion Gap 11.0 (6-13) BUN 8 (6-20) mg/dL Creatinine 0.7 (0.4-1.0) mg/dL Estimated GFR (MDRD) 97 (>89) Glucose 116 H (70-100) mg/dL Calcium 8.9 (8.5-10.3) mg/dL Magnesium 2.0 (1.7-2.8) mg/dL Total Bilirubin 1.0 (0.2-1.0) mg/dL AST 19 (10-42) IU/L ALT 21 (10-60) IU/L Alkaline Phosphatase 66 (42-121) IU/L Total Protein 7.2 (6.7-8.2) g/dL Albumin 4.3 (3.2-5.5) g/dL Globulin 2.9 (2.1-4.2) g/dL Albumin/Globulin Ratio 1.5 (1.0-2.2) Urine HCG, Qual Nasal Adenovirus (PCR) Nasal B. parapertussis DNA (PCR) Nasal Coronavir 229E PCR Nasal Coronavir HKU1 PCR Nasal Coronavir NL63 PCR Nasal Coronavir OC43 PCR Nasal Enterovir/Rhinovir PCR Nasal Influenza B PCR Nasal Influenza A PCR Nasal Parainfluen 1 PCR Nasal Parainfluen 2 PCR Nasal Parainfluen 3 PCR Nasal Parainfluen 4 PCR Nasal RSV (PCR) Nasal B.pertussis DNA PCR Nasal C.pneumoniae (PCR) Ryan Human Metapneumo PCR Nasal M.pneumoniae (PCR) Nasal SARS-CoV-2 (PCR) 10/08/20 10/08/20 Range/Units 11:55 06:30 WBC (4.8-10.8) x10^3/uL RBC (4.20-5.40) 10^6/uL Hgb (12.0-16.0) g/dL Hct (37.0-47.0) % MCV (81.0-99.0) fL MCH (27.0-31.0) pg MCHC (32.0-36.0) g/dL RDW (12.0-15.0) % Plt Count (130-450) 10^3/uL MPV (7.9-10.8) fL Neut # (Auto) (1.5-6.6) 10^3/uL Lymph # (Auto) (1.5-3.5) 10^3/uL Robeson # (Auto) (0.0-1.0) 10^3/uL Eos # (Auto) (0.0-0.7) 10^3/uL Baso # (Auto) (0.0-0.1) 10^3/uL Absolute Nucleated RBC x10^3/uL Nucleated RBC % /100WBC PT (9.9-12.6) secs INR (0.8-1.2) Sodium (135-145) mmol/L Potassium (3.5-5.0) mmol/L Chloride (101-111) mmol/L Carbon Dioxide (21-32) mmol/L Anion Gap (6-13) BUN (6-20) mg/dL Creatinine (0.4-1.0) mg/dL Estimated GFR (MDRD) (>89) Glucose (70-100) mg/dL Calcium (8.5-10.3) mg/dL Magnesium (1.7-2.8) mg/dL Total Bilirubin (0.2-1.0) mg/dL AST (10-42) IU/L ALT (10-60) IU/L Alkaline Phosphatase (42-121) IU/L Total Protein (6.7-8.2) g/dL Albumin (3.2-5.5) g/dL Globulin (2.1-4.2) g/dL Albumin/Globulin Ratio (1.0-2.2) Urine HCG, Qual NEGATIVE Nasal Adenovirus (PCR) NOT DETECTED Nasal B. parapertussis DNA (PCR) NOT DETECTED Nasal Coronavir 229E PCR NOT DETECTED Nasal Coronavir HKU1 PCR NOT DETECTED Nasal Coronavir NL63 PCR NOT DETECTED Nasal Coronavir OC43 PCR NOT DETECTED Nasal Enterovir/Rhinovir PCR NOT DETECTED Nasal Influenza B PCR NOT DETECTED Nasal Influenza A PCR NOT DETECTED Nasal Parainfluen 1 PCR NOT DETECTED Nasal Parainfluen 2 PCR NOT DETECTED Nasal Parainfluen 3 PCR NOT DETECTED Nasal Parainfluen 4 PCR NOT DETECTED Nasal RSV (PCR) NOT DETECTED Nasal B.pertussis DNA PCR NOT DETECTED Nasal C.pneumoniae (PCR) NOT DETECTED Ryan Human Metapneumo PCR NOT DETECTED Nasal M.pneumoniae (PCR) NOT DETECTED Nasal SARS-CoV-2 (PCR) NOT DETECTED - Diagnostic Imaging Diagnostic Imaging Results: positive: Final report reviewed (Afternoon XR report reviewed) ABX Reporting Has patient been on IV antibiotics over the past 48 hours?: Yes Assessment/Plan - Problem List (1) Hx of arthroscopic knee surgery Impression: Doing as expected post-op day 0. Pain control as per orders. Crutches for ambulation, may progress weight-bearing as tolerated. May discontinue crutches once ambulating with minimal limp. Range of motion as tolerated. Continue ice. F/U in clinic in 10-14 days for incision check. (2) Aspiration into airway Impression: Serial XR, labs and antibiotic as per Hospitalist team. Appreciate assistance with management. If vitals, labs and XR stable/normal in morning, likely discharge home. Continue elevated HOB and incentive spirometry
[2020-10-08] MEDS: ASPIRIN EC 325 MG TABLET PO SCH (17:56)
[2020-10-08] MEDS: ONDANSETRON 4 MG/2 ML VIAL IVP PRN (19:02)
[2020-10-08] MEDS: guaiFENesin 600 MG TABLET PO SCH (20:27)
[2020-10-09] MEDS: BENZOCAINE/MENTHOL LOZENGE MM PRN ×2 (00:22→05:59)
[2020-10-09] MEDS: oxyCODONE 5 MG TABLET PO PRN ×3 (00:22→08:09)
[2020-10-09] MEDS: metroNIDAZOLE 500 MG/100 ML 500 MG/100 ML BAG IV SCH (04:30)
[2020-10-09 04:53] LABS: BASOPHILS % (AUTO) 0.3 %; EOSINOPHILS % (AUTO) 0.2 %; HGB - HEMOGLOBIN 11.1 g/dL (12.0-16.0); LYMPHOCYTES # (AUTO) 2.9 10^3/uL (1.5-3.5); LYMPHOCYTES % (AUTO) 22.2 %; MEAN CORPUSCULAR HEMOGLOBIN 30.2 pg (27.0-31.0); MEAN CORPUSCULAR HGB CONC 33.2 g/dL (32.0-36.0); MEAN PLATELET VOLUME 9.3 fL (7.9-10.8); MONOCYTES # (AUTO) 0.9 10^3/uL (0.0-1.0); MONOCYTES % (AUTO) 7.1 %; NEUTROPHILS # (AUTO) 9.2 10^3/uL (1.5-6.6); NEUTROPHILS % (AUTO) 69.7 %; PLT - PLATELET COUNT 264 10^3/uL (130-450); RED BLOOD COUNT 3.67 10^6/uL (4.20-5.40); RED CELL DISTRIBUTION WIDTH 13.1 % (12.0-15.0); WHITE BLOOD COUNT 13.3 x10^3/uL (4.8-10.8)
[2020-10-09 05:04] LABS: CALCIUM 8.2 mg/dL (8.5-10.3); CREATININE 0.7 mg/dL (0.4-1.0)
--- NOTE | 2020-10-09 07:21 | PROVIDER PROGRESS NOTE ---
Subjective - Prog Note Date Prog Note Date: 10/09/20 Prog Note Time: 07:19 - Subjective Pt reports feeling: No change Subjective: 30F POD#1 s/p R knee scope with patellar chondroplasty. Intra-op course c/b presumed aspiration event near end of case. Remained overnight for monitoring, serial CXR and labs. Pain generally controlled on oxycodone (much better than norco). Tolerated diet last evening. Episode of nausea o/n, responsive to zofran. Chest hurts more than knee. Breaths shallow per patient report. Objective - Vital Signs/Intake & Output Reviewed Vital Signs: Yes Vital Signs: Vital Signs x48h Temp Pulse Resp BP Pulse Ox 10/09/20 04:36 36.5 C 65 20 108/53 L 97 10/09/20 00:10 74 16 104/56 L 10/08/20 23:59 36.7 C 59 L 18 97/49 L 95 Intake & Output: Intake & Output 10/06/20 10/07/20 10/08/20 10/09/20 23:59 23:59 23:59 23:59 Intake Total 1200 100 Output Total 465 200 Balance 735 -100 - Objective General Appearance: positive: No acute distress Eyes Bilateral: positive: Normal inspection Respiratory: positive: Other (Breathing shallow) Cardiovascular: positive: Regular rate & rhythm (by perpipheral palpation at right dorsalis pedis.) Extremities: positive: No pedal edema, Other (RLE miryam wrap in place without strikethrough. SILT sap/taryn/spn/dpn/tibial distributions. Fires TA/EHL/EDC/GSC/FHL/FDL. Palpable DP. Foot warm and well perfused.) Neurologic/Psychiatric: positive: Mood/affect nml - Lab Results Fish Bones: 10/09/20 04:25 10/09/20 04:25 Other Labs: Lab Results x24hrs 10/09/20 10/09/20 10/08/20 Range/Units 04:25 04:25 13:08 WBC 13.3 H (4.8-10.8) x10^3/uL RBC 3.67 L (4.20-5.40) 10^6/uL Hgb 11.1 L (12.0-16.0) g/dL Hct 33.4 L (37.0-47.0) % MCV 91.0 (81.0-99.0) fL MCH 30.2 (27.0-31.0) pg MCHC 33.2 (32.0-36.0) g/dL RDW 13.1 (12.0-15.0) % Plt Count 264 (130-450) 10^3/uL MPV 9.3 (7.9-10.8) fL Neut # (Auto) 9.2 H (1.5-6.6) 10^3/uL Lymph # (Auto) 2.9 (1.5-3.5) 10^3/uL [place] # (Auto) 0.9 (0.0-1.0) 10^3/uL Eos # (Auto) 0.0 (0.0-0.7) 10^3/uL Baso # (Auto) 0.0 (0.0-0.1) 10^3/uL Absolute Nucleated RBC 0.00 x10^3/uL Nucleated RBC % 0.0 /100WBC PT (9.9-12.6) secs INR (0.8-1.2) Sodium 138 138 (135-145) mmol/L Potassium 3.4 L 3.4 L (3.5-5.0) mmol/L Chloride 106 103 (101-111) mmol/L Carbon Dioxide 23 24 (21-32) mmol/L Anion Gap 9.0 11.0 (6-13) BUN 9 8 (6-20) mg/dL Creatinine 0.7 0.7 (0.4-1.0) mg/dL Estimated GFR (MDRD) 97 97 (>89) Glucose 107 H 116 H (70-100) mg/dL Calcium 8.2 L 8.9 (8.5-10.3) mg/dL Magnesium 2.0 (1.7-2.8) mg/dL Total Bilirubin 1.0 (0.2-1.0) mg/dL AST 19 (10-42) IU/L ALT 21 (10-60) IU/L Alkaline Phosphatase 66 (42-121) IU/L Total Protein 7.2 (6.7-8.2) g/dL Albumin 4.3 (3.2-5.5) g/dL Globulin 2.9 (2.1-4.2) g/dL Albumin/Globulin Ratio 1.5 (1.0-2.2) Nasal Adenovirus (PCR) Nasal B. parapertussis DNA (PCR) Nasal Coronavir 229E PCR Nasal Coronavir HKU1 PCR Nasal Coronavir NL63 PCR Nasal Coronavir OC43 PCR Nasal Enterovir/Rhinovir PCR Nasal Influenza B PCR Nasal Influenza A PCR Nasal Parainfluen 1 PCR Nasal Parainfluen 2 PCR Nasal Parainfluen 3 PCR Nasal Parainfluen 4 PCR Nasal RSV (PCR) Nasal B.pertussis DNA PCR Nasal C.pneumoniae (PCR) Ryan Human Metapneumo PCR Nasal M.pneumoniae (PCR) Nasal SARS-CoV-2 (PCR) 10/08/20 10/08/20 10/08/20 Range/Units 13:08 13:08 11:55 WBC 17.7 H (4.8-10.8) x10^3/uL RBC 4.33 (4.20-5.40) 10^6/uL Hgb 13.1 (12.0-16.0) g/dL Hct 39.3 (37.0-47.0) % MCV 90.8 (81.0-99.0) fL MCH 30.3 (27.0-31.0) pg MCHC 33.3 (32.0-36.0) g/dL RDW 12.7 (12.0-15.0) % Plt Count 309 (130-450) 10^3/uL MPV 9.0 (7.9-10.8) fL Neut # (Auto) 16.1 H (1.5-6.6) 10^3/uL Lymph # (Auto) 0.9 L (1.5-3.5) 10^3/uL [place] # (Auto) 0.5 (0.0-1.0) 10^3/uL Eos # (Auto) 0.1 (0.0-0.7) 10^3/uL Baso # (Auto) 0.1 (0.0-0.1) 10^3/uL Absolute Nucleated RBC 0.00 x10^3/uL Nucleated RBC % 0.0 /100WBC PT 13.6 H (9.9-12.6) secs INR 1.2 (0.8-1.2) Sodium (135-145) mmol/L Potassium (3.5-5.0) mmol/L Chloride (101-111) mmol/L Carbon Dioxide (21-32) mmol/L Anion Gap (6-13) BUN (6-20) mg/dL Creatinine (0.4-1.0) mg/dL Estimated GFR (MDRD) (>89) Glucose (70-100) mg/dL Calcium (8.5-10.3) mg/dL Magnesium (1.7-2.8) mg/dL Total Bilirubin (0.2-1.0) mg/dL AST (10-42) IU/L ALT (10-60) IU/L Alkaline Phosphatase (42-121) IU/L Total Protein (6.7-8.2) g/dL Albumin (3.2-5.5) g/dL Globulin (2.1-4.2) g/dL Albumin/Globulin Ratio (1.0-2.2) Nasal Adenovirus (PCR) NOT DETECTED Nasal B. parapertussis DNA (PCR) NOT DETECTED Nasal Coronavir 229E PCR NOT DETECTED Nasal Coronavir HKU1 PCR NOT DETECTED Nasal Coronavir NL63 PCR NOT DETECTED Nasal Coronavir OC43 PCR NOT DETECTED Nasal Enterovir/Rhinovir PCR NOT DETECTED Nasal Influenza B PCR NOT DETECTED Nasal Influenza A PCR NOT DETECTED Nasal Parainfluen 1 PCR NOT DETECTED Nasal Parainfluen 2 PCR NOT DETECTED Nasal Parainfluen 3 PCR NOT DETECTED Nasal Parainfluen 4 PCR NOT DETECTED Nasal RSV (PCR) NOT DETECTED Nasal B.pertussis DNA PCR NOT DETECTED Nasal C.pneumoniae (PCR) NOT DETECTED Ryan Human Metapneumo PCR NOT DETECTED Nasal M.pneumoniae (PCR) NOT DETECTED Nasal SARS-CoV-2 (PCR) NOT DETECTED - Diagnostic Imaging Diagnostic Imaging Results: positive: Final report reviewed (Evening 10/08 report reviewed. AM 10/09 CXR pending.) Assessment/Plan - Problem List (1) Hx of arthroscopic knee surgery Impression: POD#1 s/p R knee arthroscopy, doing as expected. Plan: - WBAT with crutches, ROMAT - Continue MIRYAM wrap x 3 days post-op - OK to shower and get incision wet (do not submerge) on POD#3 - ASA 325mg PO QD for DVT ppx - Paper script provided for oxycodone - OK to discharge from an Orthopedic perspective, discharge pending repeat evalulation of pulmonary status and CXR this AM. - F/U in clinic in 7-10 days for incision check and initiation of therapy (2) Aspiration into airway Impression: Approx 24h s/p suspected intra-op aspiration event, held overnight for monitoring. Plan: - Follow-up AM XR with Hospitalist service - If vitals remain stable, sats hold during wlak test and XR w/o negative changes, will likely DC to home based on Hospitalist recommendations - D/C order to be placed (if appropriate) by hospitalist after eval this morning, otherwise will discuss admission/obs. - Discharge antibiotics plan deferred to Hospitalist recommendation/expertise. Appreciate assistance with this patient. - I can be reached on cell phone listed in orders. My clinic number is [phone], or [phone].
[2020-10-09] MEDS ORDERED: POTASSIUM CHLORIDE 20 MEQ TABLET PO ONE (07:30)
[2020-10-09] MEDS: ASPIRIN EC 325 MG TABLET PO SCH (08:09)
[2020-10-09] MEDS: cefTRIAXone 2 GM in SODIUM CHLORIDE 0.9% MINIBAG 100 ML IV SCH (08:11)
[2020-10-09] MEDS: guaiFENesin 600 MG TABLET PO SCH (08:11)
[2020-10-09] MEDS: ONDANSETRON 4 MG/2 ML VIAL IVP PRN (08:30)
--- NOTE | 2020-10-09 09:54 | XRAY Report ---
PROCEDURE: Chest 1 View X-Ray INDICATIONS: F/U pneumonia vs pneumonitis TECHNIQUE: One view of the chest was acquired. COMPARISON: 10/08/2020 FINDINGS: Surgical changes and devices: Cholecystectomy clips. Lungs and pleura: No pleural effusions or pneumothorax. Lungs are clear. Mediastinum: Mediastinal contours appear normal. Heart size is normal. Bones and chest wall: No suspicious bony lesions. Overlying soft tissues appear unremarkable. IMPRESSION: No acute cardiopulmonary disease process. Reviewed by: Lucrecia Segovia MD, PhD on 10/09/2020 9:52 AM PST Approved by: Lucrecia Segovia MD, PhD on 10/09/2020 9:52 AM PST Station ID: [id number]
--- NOTE | 2020-10-09 11:46 | Discharge Plan ---
Discharge Plan Problem Reviewed?: Yes Disposition: Home, Self Care Condition: Stable Prescriptions: oxyCODONE [Roxicodone] 2.5 - 5 mg PO Q4HR PRN #10 PRN Reason: Severe Pain Methylprednisolone [Medrol Dose Pack] 1 each PO .PACKAGEINSTRUCTIONS 6 Days #1 each Pantoprazole [Protonix] 40 mg PO DAILY #30 Diet: Soft (Eat soft, nonspicy food for the next week and stay well-hydrated. Advance your diet as tolerated.) Activity Restrictions: Activity as Tolerated Shower Restrictions: No Driving Restrictions: Yes (No driving until you are able to cntrol right leg w/out narcotics for pain ) Assistance Devices: Crutches Instruction Topics: Aspiration Tx Ch Health Concerns: You were kept in observation for monitoring your airway after you had aspiration of stomach contents, witnessed at the end of your orthopedic surgery procedure. You are being prescribed a Medrol dose pack to help with the upper airway inflammation. You are being prescribed Protonix to take for 1 week minimum to help with the acid burning feeling in your stomach. Dr. Leal wants you to take 1 aspirin 325 mg daily for 30 days and to see him in clinic in follow-up. Oxycodone has been prescribed for pain control, use this minimally since you become excessively sedated with it. Dr. Leal wants you out of work for approximately 10 to 14 days or until you are 1) off crutches, 2) not requiring narcotics for pain, and 3) able to drive using the right foot. He said you could resume working if someone else drives you to work and if you no longer need narcotics for pain control. A separate written order for release from work has been provided for you. Plan of Treatment: As above. Care Goals: Improvement in symptoms and stabilization are the goals. Assessment: The patient understands and is agreeable with the plan. Additional Instructions or Follow Up instructions: If you have new or worsening symptoms, call your PCP or Dr. Leal for advice or come to the ER. No Smoking: If you smoke, Please STOP! Call for help. Follow-up with: Matthias Leal MD [Provider Admit Priv/Credential] -
[2020-10-09 12:15] VITALS: BP 118/67
[2020-10-09] MEDS: HYDROcod/ACETAM 5/325 MG TABLET PO PRN (12:22)
== END 2020-10-09 13:26 | disposition home or self-care (01) ==
LOC: SDS 06:16 → MS2 11:09 → SDS 10-09 13:26
PROVIDERS: ATTEND Orthopaedic Surgery
PROC: 0SBC4ZZ Excision of Right Knee Joint, Percutaneous Endoscopic Approach (ICD-10-PCS; principal; 2020-10-08 07:30)
DX: M23.251 Derangement of posterior horn of lateral meniscus due to old tear or injury, right knee (principal); M23.211 Derangement of anterior horn of medial meniscus due to old tear or injury, right knee; M22.41 Chondromalacia patellae, right knee; J95.88 Other intraoperative complications of respiratory system, not elsewhere classified; J69.0 Pneumonitis due to inhalation of food and vomit; Y83.8 Other surgical procedures as the cause of abnormal reaction of the patient, or of later complication, without mention of misadventure at the time of the procedure; Y92.234 Operating room of hospital as the place of occurrence of the external cause; E87.6 Hypokalemia; M23.41 Loose body in knee, right knee; M67.51 Plica syndrome, right knee; E66.9 Obesity, unspecified; Z68.33 Body mass index [BMI] 33.0-33.9, adult; Z20.822 Contact with and (suspected) exposure to COVID-19; Z87.891 Personal history of nicotine dependence
CPT/HCPCS: 0202U; 29880; 36415; 71045; 80048; 80053; 81025; 83735; 85025; 85610; 94761; A9270; J7120

== ENCOUNTER 2020-10-11 07:37 | Emergency (ER) | payer OTHER ==
[2020-10-11] MEDS ORDERED: CHERRY SYRUP 10 ML UDC PO ONE (07:56)
[2020-10-11] MEDS ORDERED: DEXAMETHASONE 10 MG/ML VIAL PO STA (07:56)
[2020-10-11] MEDS ORDERED: ALBUTEROL 1 PUFF INH STA (07:56)
--- NOTE | 2020-10-11 08:02 | ED Physician Documentation ---
History of Present Illness - Stated complaint Stated Complaint: COUGH - Chief complaint Chief Complaint: Resp - History obtained from History obtained from: Patient - History of Present Illness Pain level max: 4 Pain level now: 3 - Additonal information Additional information: 30-year-old female presents to the emergency department stating that she had a right knee scope performed 4 days ago. At that time she had aspiration at the end of the case. She was observed in the hospital for 24 hours and sent home. States is still having coughing. Nothing makes it better or worse. No fevers. No chills. Spoke with her orthopedist who recommend that she come to the ER for evaluation. Patient also states that her chest feels sore. Her throat feels sore as well. Review of Systems Ten Systems: 10 systems reviewed and negative Constitutional: denies: Fever, Chills Throat: denies: Sore throat Cardiac: denies: Chest pain / pressure Respiratory: reports: Dyspnea, Cough, Wheezing GI: denies: Vomiting, Diarrhea Skin: denies: Rash Musculoskeletal: denies: Neck pain, Back pain Neurologic: denies: Focal weakness, Numbness, Headache PD PAST MEDICAL HISTORY - Past Medical History Cardiovascular: None Respiratory: None Neuro: None Endocrine/Autoimmune: None GI: None REQUIREMENTS ANALYST: None : None HEENT: None Psych: None Musculoskeletal: Other Derm: None - Past Surgical History Past Surgical History: Yes General: Cholecystectomy Ortho: Other /REQUIREMENTS ANALYST: Endometrial ablation HEENT: Tonsil/Adenoidectomy Derm: Other - Present Medications Home Medications: Ambulatory Orders Medication Instructions Recorded Confirmed Aspirin EC [Ecotrin] 325 mg PO DAILY 10/09/20 Methylprednisolone [Medrol Dose 1 each PO .PACKAGEINSTRUCTIONS 6 10/09/20 Pack] Days #1 each Pantoprazole [Protonix] 40 mg PO DAILY #30 10/09/20 oxyCODONE [Roxicodone] 2.5 - 5 mg PO Q4HR PRN #10 10/09/20 Albuterol Sulf [Ventolin Hfa 1 - 2 puffs INH Q4HR PRN #1 inhaler 10/11/20 Inhaler] Benzonatate [Tessalon] 200 mg PO TID PRN #30 cap 10/11/20 HYDROcod/ACETAM 5/325 [[place] 5/325] 1 - 2 ea PO Q6H PRN 10/11/20 10/11/20 - Allergies Allergies/Adverse Reactions: Allergies Allergy/AdvReac Type Severity Reaction Status Date / Time naproxen [From Naprosyn] Allergy Anaphylaxis Verified 10/08/20 06:35 Penicillins Allergy Hives Verified 10/11/20 07:55 Sulfa (Sulfonamide Allergy Hives Verified 10/08/20 06:35 Antibiotics) hydromorphone [From Dilaudid] AdvReac Nausea Verified 10/08/20 06:35 - Social History Does the pt smoke?: No Smoking Status: Never smoker Does the pt drink ETOH?: Yes Does the pt have substance abuse?: No - Immunizations Immunizations are current?: Yes - POLST Patient has POLST: No PD ED PE NORMAL - Vitals Vital signs reviewed: Yes - General General: Alert and oriented X 3, No acute distress - HEENT HEENT: PERRL, Moist mucous membranes, Other (Mild posterior oropharyngeal erythema with no tonsillar exudates.) - Neck Neck: Supple, no meningeal sign, No adenopathy - Cardiac Cardiac: RRR - Respiratory Respiratory: No respiratory distress, Other (Mild diminished breath sounds, right greater than left.) - Abdomen Abdomen: Soft, Non tender, Non distended - Derm Derm: Warm and dry - Extremities Extremities: No edema - Neuro Neuro: Alert and oriented X 3 - Psych Psych: Normal mood, Normal affect Results - Vitals Vitals: Vital Signs - 24 hr 10/11/20 10/11/20 07:47 08:26 Temperature 36.1 C L Heart Rate 110 H 72 Respiratory 18 16 Rate Blood Pressure 128/76 O2 Saturation 96 Oxygen O2 Source Room air - Rads (name of study) Chest x-ray Radiology: Prelim report reviewed, EMP read indepedently (no acute disease) PD MEDICAL DECISION MAKING - ED course Complexity details: reviewed results, re-evaluated patient, considered differential, d/w patient ED course: No acute findings on x-ray. Patient is well-appearing, nontoxic. Afebrile. No hypoxia. No respiratory distress. Appears to have a chemical pneumonitis. We will prescribe an inhaler for home as this did seem to help her here. Will prescribe antitussive medication as well. No evidence of pulmonary embolus. No atelectasis or pneumonia. Patient counseled regarding signs and symptoms for which I believe and urgent re-evaluation would be necessary. Patient with good understanding of and agreement to plan and is comfortable going home at this time This document was made in part using voice recognition software. While efforts are made to proofread this document, sound alike and grammatical errors may occur. There were issues with radiology reading her chest x-ray, read is still not back after 3 hours despite multiple phone calls to radiology for a read. Departure - Departure Disposition: Home, Self Care Clinical Impression: Pneumonitis Condition: Good Instructions: ED Dyspnea Shortness of Breath Follow-Up: your,doctor in 3 days for recheck [Other] Prescriptions: Albuterol Sulf [Ventolin Hfa Inhaler] 1 - 2 puffs INH Q4HR PRN #1 inhaler PRN Reason: Shortness Of Air/Wheezing Benzonatate [Tessalon] 200 mg PO TID PRN #30 cap PRN Reason: Cough Comments: Continue the steroids at home. Return if you worsen. Use the inhaler and the cough medication as well. You should follow-up with your doctor in about 3 days for a recheck. Return sooner if your symptoms worsen including fevers, worsening difficulty breathing or new or worrisome changes.
[2020-10-11 10:51] VITALS: BP 129/74
--- NOTE | 2020-10-15 15:54 | XRAY Report ---
PROCEDURE: Chest 2 View X-Ray INDICATIONS: Cough status post aspiration TECHNIQUE: 2 view(s) of the chest. COMPARISON: 10/09/2020 10/08/2020 chest radiograph FINDINGS: Surgical changes and devices: None. Lungs and pleura: No new or abnormal airspace opacity in the lungs identified. No visible pleural eff usion or findings of pneumothorax. Mediastinum: Mediastinal contours are normal. Heart size is normal. Bones and chest wall: No suspicious bony abnormalities. Soft tissues appear unremarkable. IMPRESSION: No acute cardiopulmonary process demonstrated radiographically. Reviewed by: Ignacio Jesus MD on 10/11/2020 8:31 AM [facility] Approved by: Ignacio Jesus MD on 10/11/2020 8:31 AM PST Station ID: [id number]
== END 2020-10-11 10:15 | disposition home or self-care (01) ==
LOC: ED 07:37
DX: J18.9 Pneumonia, unspecified organism (principal); Z98.890 Other specified postprocedural states; Z79.82 Long term (current) use of aspirin
CPT/HCPCS: 71046; 94640; 94664; 99283; 99284; A9270

== ENCOUNTER 2020-11-13 09:34 | Outpatient (CLI) | payer OTHER ==
[2020-11-13] MEDS ORDERED: ALBUTEROL 1 PUFF INH STA (12:20)
== END 2020-11-13 09:35 | disposition home or self-care (01) ==
LOC: RT 09:34
PROVIDERS: ATTEND Family Medicine
DX: R06.09 Other forms of dyspnea (principal)
CPT/HCPCS: 94060

== ENCOUNTER 2021-04-13 12:21 | Emergency (ER) | payer BC, OTHER ==
[2021-04-13 12:34] VITALS: BP 140/80
[2021-04-13] MEDS ORDERED: BUFFERED LIDOCAINE 10 ML SYRINGE SUBQ STA (12:35)
[2021-04-13] MEDS ORDERED: TETANUS/DIPHTHERIA/PERTUSSIS 0.5 ML SYRINGE IM ONE (12:35)
--- NOTE | 2021-04-13 12:40 | ED Physician Documentation ---
PD HPI LOWER EXT INJURY - Stated complaint Stated Complaint: L LEG LAC - Chief complaint Chief Complaint: Laceration - History obtained from History obtained from: Patient - History of Present Illness PD HPI LOW EXT INJURY LOCATION: Left (Laceration to the left calf by jacques wire at home just prior to arrival. No other injuries. She needs a tetanus shot.) Review of Systems Constitutional: reports: Reviewed and negative Eyes: reports: Reviewed and negative Ears: reports: Reviewed and negative Nose: reports: Reviewed and negative Throat: reports: Reviewed and negative Cardiac: reports: Reviewed and negative Respiratory: reports: Reviewed and negative PD PAST MEDICAL HISTORY - Past Medical History Cardiovascular: None Respiratory: None Neuro: None Endocrine/Autoimmune: None GI: None BIOLOGICAL SCIENCE TECHNICIAN: None : None HEENT: None Psych: None Musculoskeletal: Other Derm: None - Past Surgical History Past Surgical History: Yes General: Cholecystectomy Ortho: Other /BIOLOGICAL SCIENCE TECHNICIAN: Endometrial ablation HEENT: Tonsil/Adenoidectomy Derm: Other - Present Medications Home Medications: Ambulatory Orders Medication Instructions Recorded Confirmed No Known Home Medications 04/13/21 04/13/21 - Allergies Allergies/Adverse Reactions: Allergies Allergy/AdvReac Type Severity Reaction Status Date / Time naproxen [From Naprosyn] Allergy Anaphylaxis Verified 04/13/21 12:29 Penicillins Allergy Hives Verified 04/13/21 12:29 Sulfa (Sulfonamide Allergy Hives Verified 04/13/21 12:29 Antibiotics) hydromorphone [From Dilaudid] AdvReac Nausea Verified 04/13/21 12:29 - Social History Does the pt smoke?: No Smoking Status: Never smoker Does the pt drink ETOH?: Yes Does the pt have substance abuse?: No - Immunizations Immunizations are current?: Yes - POLST Patient has POLST: No PD ED PE NORMAL - Vitals Vital signs reviewed: Yes - General General: Alert and oriented X 3, No acute distress - HEENT HEENT: PERRL, EOMI - Neck Neck: Supple, no meningeal sign, No bony TTP - Extremities Extremities: Other (There is a very long laceration on the left calf, measures about 10 cm. It is vertical. All but the top centimeter is quite shallow, but quite top centimeter needs closure, the bottom of 9 cm can be closed with just skin glue.) - Neuro Neuro: Alert and oriented X 3, Normal speech Results - Vitals Vitals: Vital Signs - 24 hr 04/13/21 12:29 Temperature 36.5 C Heart Rate 90 Respiratory 16 Rate Blood Pressure 140/80 H O2 Saturation 98 Oxygen O2 Source Room air Procedures - Laceration (location) LLE Length in cm: 10 Wound type: Linear Neurovascular status: Sensory intact, Motor intact, Vascular intact Anesthesia: Lidocaine 1%, With bicarb Wound preparation: Irrigated copiously NS Skin layer closure: Other (The top portion of the wound which was a little deeper was closed with a single mattress suture with 4-0 nylon, the remainder was closed with Dermabond.) Other: Tetanus booster given Departure - Departure Disposition: Home, Self Care Clinical Impression: Laceration of left leg Qualifiers: Encounter type: initial encounter Qualified Code(s): S81.812A - Laceration without foreign body, left lower leg, initial encounter Condition: Good Record reviewed to determine appropriate education?: Yes Instructions: ED Laceration Ext Skin Glue, ED Laceration Ext Sutr Stap Tape Comments: You can wash with soap and water and otherwise pretty much ignore the wound. You may want to put a Band-Aid over the top part where the suture is. The suture needs to come out in 10 to 14 days, you can follow-up with your doctor or go to a walk-in clinic for that. Return if worsening.
== END 2021-04-13 13:40 | disposition home or self-care (01) ==
LOC: ED 12:21
DX: S81.812A Laceration without foreign body, left lower leg, initial encounter (principal); W26.8XXA Contact with other sharp object(s), not elsewhere classified, initial encounter; Y92.009 Unspecified place in unspecified non-institutional (private) residence as the place of occurrence of the external cause; Z23 Encounter for immunization
CPT/HCPCS: 12004; 90471; 99282; 99283